=== PATIENT | female | born 1990 | race Caucasian/White ===

== ENCOUNTER 2023-08-30 20:30 | Emergency (ER) | payer OTHER, SELFPAY ==
--- NOTE | ~2023-08-30 | XR_ITS ---
EXAMINATION: XR HAND, RIGHT CLINICAL INFORMATION: Punched a wall. COMPARISON: None available. TECHNIQUE: PA, lateral, and oblique views of the right hand. FINDINGS: Equivocal nondisplaced fracture at the head of the fifth metacarpal. Anatomic alignment. No significant soft tissue abnormality. No unexpected radiopaque foreign bodies. XR/XR hand RT min 3V IMPRESSION: Equivocal nondisplaced fracture at the head of the fifth metacarpal. Correlate for point tenderness.
[2023-08-30 20:39] VITALS: BP 131/83; PULSE 104; RESP 18; TEMP 36.7; O2SAT 96; BMI 26.6
--- NOTE | 2023-08-30 20:39 | ED.PSYCH ---
HPI - Psych General Chief Complaint: ETOH/Substance Use Stated Complaint: crisis, detox, multp. issue Time Seen by Provider: 08/30/23 21:43 Source: patient Mode of arrival: ambulatory Limitations: no limitations History of Present Illness HPI Narrative: 33 yo female with PMH of alcohol use disorder and anxiety here with increased ETOH, daily panic attacks, SI thoughts no plan and chest pain with panic attacks happening daily for 2 weeks. She has sig complaints. She denies hx of withdrawal seizures. Drinks 1 - 2 pints of liquor a day. MD complaint: suicidal ideation, feels depressed and anxiety Onset (ago): month(s) History of same: Yes Relieving factors: none Exacerbating factors: alcohol Context: recent alcohol abuse Associated psychiatric symptoms: depression and suicidal ideation Associated symptoms: nausea and other (anxiety, daily chest pain) Treatments prior to arrival: none If self harm: admits thoughts of self harm Related Data Allergies Allergy/AdvReac Type Severity Reaction Status Date / Time lactose Allergy Unknown Gastrointestinal Uncoded 08/30/23 20:39 Upset Seasonal Allergy Unknown Itchy Eyes Uncoded 08/30/23 20:39 SEASONAL ALLERGIES Allergy Unknown RUNNY NOSE Uncoded 04/01/20 17:53 Review of Systems Review of Systems: Constitutional : No Fever, No Chills ENT/Mouth : No Ear Pain, No Nasal Congestion, No sore throat Eyes: No Eye Pain, No Swelling, No Redness Cardiovascular : pos Chest Pain, No SOB Respiratory : No Cough, No Sputum, No Dyspnea Gastrointestinal : No Nausea, No Vomiting, No Diarrhea, No Hematochezia, No Melena Genitourinary : No Dysuria, No Urinary Frequency, No Hematuria Musculoskeletal : No Myalgias Skin : No Skin Lesions, No rash Neuro : No Weakness, No Numbness, No Paresthesias, No Dizziness, No Headache Psych : positive Anxiety, positive Depression, positive SI no HI Heme/Lymph: No Lymphadenopathy Endocrine : No Polyuria, No Polydipsia All other systems reviewed and are negative [facility] Past Medical History Attestation statement: The following information was validated with the patient. Source: old records reviewed Medical History Anxiety Alcohol use disorder Social History Social History (Updated 08/30/23 @ 22:27 by Sherri Gordon DO) Alcohol intake: current Patient Tobacco Use Status: Never used Tobacco Substance Use Type: Marijuana Advance Directives: No Advance Directives Information Provided: No Physical Exam Vital Signs: Vital Signs: Last Vital Signs Temp 98.3 F 08/31/23 00:59 Pulse 94 08/31/23 00:59 Resp 17 08/31/23 00:59 BP 105/70 08/31/23 00:59 Pulse Ox 97 08/31/23 00:59 O2 Del Method Room Air 08/31/23 00:59 BMI result Body Mass Index 26.6 Appearance: Alert. Oriented X3. No acute distress. Eyes: Pupils equal, round and reactive to light. ENT: Pharynx normal. Neck: Normal inspection. Neck supple. CVS: Normal heart rate and rhythm. Pulses normal. Respiratory: No respiratory distress. Breath sounds normal. Abdomen: Soft and nontender. Skin: Skin warm and dry. Normal skin color. Normal skin turgor. Extremities: No lower extremity edema. No calf ttp R hand contusion noted R 3/4 MCP joints on dorsum of hand distal NV intact Neuro: Oriented X 3. No motor deficit. No sensory deficit. CN2-12 intact Course Course Course Narrative: This is a rapid medical exam: Additional HPI, ROS, PE not included below will be deferred to primary provider. Patient is a 33-year-old female with history of PTSD, depression, and anxiety presenting to the emergency department requesting help with detox from alcohol. Reports daily drinking for the past 2 years. Complains of diarrhea with bright red blood in stool, decreased appetite. Seen at [facility] recently and diagnosed with fatty liver. Also complains of chest pain and tightness. Complains of anxiety and depression, states she doesn't feel like waking up in the morning. Denies history of withdrawal seizures. Last drink 9am this morning. States only drug use is marijuana. Denies suicidal or homicidal ideation, auditory or visual hallucinations. Calm and cooperative in triage. Plan: EKG, labs, UA, CARE eval once medically cleared Reevaluation(s) Reevaluation #1: Physician observation started at 1030pm. Patient placed in physician observation because the patient needed more time for CARE team to assess the need for psych admission. At the time observation was started the patient's vitals were stable, patient is alert and oriented but anxious PRN ativan ordered. Neuro: nonfocal, CV RRR, Lungs clear Medications Administered Generic Name Dose Route Start Last Admin Trade Name Freq PRN Reason Stop Dose Admin Lorazepam 2 mg 08/30/23 22:07 08/30/23 23:58 Lorazepam 1 Mg Tablet PO 2 mg Q2H PRN Administration Alcohol Withdrawal Medical Decision Making Medical Decision Making [facility] Narrative: 33 yo female with ETOH abuse and multiple complaints including SI - at this time EKG, troponin basic labs - PO ativan, CARE team consult, R hand xray. No hx of withdrawal seizures Differential Diagnosis Differential Diagnoses: The differential diagnosis associated with the presentation includes ETOH abuse, anxiety, R hand fracture, gastritis, atypical chest pain Admission/Observation Consideration of admission/observation: Escalation of care including admission/observation considered Consult Healthcare Provider Management of the patient was discussed with: Behavioral Health Provider Lab Data [facility] Lab Attestation statement: I reviewed the patient's lab results. LFTs as expected EKG and TROP flat no OCPs or risk factors for VTE 08/30/23 21:37 08/30/23 21:37 Labs: Lab Results 08/30/23 Range/Units 21:37 WBC 5.5 (4.8-10.8) X10*3/uL RBC 4.35 (4.20-5.50) X10*6/uL Hgb 13.0 (12.0-16.0) g/dl Hct 39.4 (37.0-47.0) % MCV 90.6 (80.0-98.0) fL MCH 29.9 (27.0-33.0) pg MCHC 33.0 (31.0-35.0) g/dl RDW 14.0 (11.0-16.0) % Plt Count 325 (160-400) X10*3/uL MPV 8.9 L (9.4-12.3) fL Immature Gran % (Auto) 0.2 (0.0-0.4) % Neut % (Auto) 71.8 (45-73) % Lymph % (Auto) 20.2 (20-40) % [place] % (Auto) 6.7 (2-11) % Eos % (Auto) 0.2 (0-4) % Baso % (Auto) 0.9 (0-2) % Lymph # (Auto) 1.1 L (1.2-4.9) X10*3/uL [place] # (Auto) 0.4 (0.1-1.2) X10*3/uL Eos # (Auto) 0.0 (0.0-0.4) X10*3/uL Baso # (Auto) 0.1 (0.0-0.2) X10*3/uL Abs Immat Gran (auto) 0.01 (0.00-0.03) X10*3/uL Absolute Neuts (auto) 4.0 (2.0-8.3) x10*3/uL Absolute Nucleated RBC 0.000 (0.0-0.012) X10*3/uL Nucleated RBC % (auto) 0.0 (0.0-0.2) /100WBC Sodium 136 (135-145) mmol/L Potassium 4.9 (3.3-5.1) mmol/L Chloride 101 (96-108) mmol/L Carbon Dioxide 21 L (22-29) mmol/L Anion Gap 19 (12-20) BUN 7 L (9-16) mg/dL Creatinine 0.66 (0.5-1.4) mg/dL Estim Creat Clear Calc 134.1 Estimated GFR > 60 Random Glucose 70 (60-115) mg/dL Calcium 9.0 (8.4-10.2) mg/dL Total Bilirubin 1.6 H (0.0-1.0) mg/dL AST 121 H (5-31) U/L ALT 89 H (0-31) U/L Alkaline Phosphatase 76 (39-117) U/L Troponin I High Sens < 2.7 (<3.5-17.0) ng/L Total Protein 6.3 L (6.5-8.0) g/dL Albumin 3.7 (3.5-5.0) g/dL Beta HCG, Quant < 2 mIU/mL Salicylates < 5.0 L (15-30) mg/dL Acetaminophen < 3 (<30) mcg/mL Ethyl Alcohol 120 mg/dL COVID-19 ([facility]ANE) Negative (Negative) COVID-19 Clin Com See Note Independent Interpretation I performed an independent interpretation of an: EKG Interpretation: Rate: 84 Rhythm: NSR Fontana: normal Normal P waves. Normal KIN. Normal QRS complex. ST T wave : no GOLDIE, inverted t wave III and V1 qTC: 477 prior studies: no acute ischemia The study has been interpreted contemporaneously by me. . Procedures Orthopedic Splinting/Casting Injury #1: Side: right Upper Extremity Injury Location: hand Upper Extremity Immobilizer: ulnar gutter Discharge Plan Discharge Clinical Impression: Alcohol abuse Closed fracture of 5th metacarpal Qualifiers: Encounter type: initial encounter Metacarpal location: unspecified portion of metacarpal Fracture alignment: nondisplaced Laterality: right Qualified Code(s): S62.306A - Unspecified fracture of fifth metacarpal bone, right hand, initial encounter for closed fracture Patient Disposition: Still a Patient
--- NOTE | 2023-08-30 20:43 | ECG_ITS ---
Test Reason : etoh Blood Pressure : / mmHG Vent. Rate : 084 BPM Atrial Rate : 084 BPM P-R Int : 150 ms QRS Dur : 076 ms QT Int : 404 ms P-R-T Axes : 069 009 017 degrees QTc Int : 477 ms Normal sinus rhythm Low voltage QRS Incomplete RBBB Abnormal ECG No previous ECGs available Referred By: Melodie Bardales Electronically Signed By:Galen Varma
[2023-08-30 21:42] LABS: MANUAL DIFF FLAG NO
[2023-08-30 21:45] LABS: Basophils Absolute Auto 0.1 X10*3/uL (0.0-0.2); Basophils Percent Auto 0.9 % (0-2); Eosinophils Percent Auto 0.2 % (0-4); Hematocrit 39.4 % (37.0-47.0); Imm Gran Abs Auto 0.01 X10*3/uL (0.00-0.03); Imm Gran Pct Auto 0.2 % (0.0-0.4); Lymphocytes Absolute Auto 1.1 X10*3/uL (1.2-4.9); Lymphocytes Percent Auto 20.2 % (20-40); Mean Corpuscular Hemoglobin 29.9 pg (27.0-33.0); Mean Corpuscular Volume 90.6 fL (80.0-98.0); Mean Platelet Volume 8.9 fL (9.4-12.3); Monocytes Absolute Auto 0.4 X10*3/uL (0.1-1.2); Monocytes Percent Auto 6.7 % (2-11); Neutrophils Percent Auto 71.8 % (45-73); Platelet Count 325 X10*3/uL (160-400); Red Blood Count 4.35 X10*6/uL (4.20-5.50); White Blood Count 5.5 X10*3/uL (4.8-10.8)
[2023-08-30 21:56] LABS: COVID-19 Test Negative (Negative); IDNOW Serial# 152EDE1D
--- NOTE | 2023-08-30 21:56 | MHC.EDTECH ---
Patient blood drawn and covid swab collected and sent to lab ,ekg taken and was read by Provider .
[2023-08-30 21:57] LABS: Acetaminophen LAB < 3 mcg/mL (<30); Salicylate < 5.0 mg/dL (15-30)
[2023-08-30 22:02] LABS: Alanine Aminotransferase 89 U/L (0-31); Albumin Level 3.7 g/dL (3.5-5.0); Alkaline Phosphatase 76 U/L (39-117); Anion Gap 19 (12-20); Aspartate Amino Transferase 121 U/L (5-31); Bilirubin Total 1.6 mg/dL (0.0-1.0); Blood Urea Nitrogen 7 mg/dL (9-16); Carbon Dioxide 21 mmol/L (22-29); Chloride 101 mmol/L (96-108); Creatinine Clr Calc Pharmacy 134.1; Estimated Glomerular Filt Rate > 60; Ethanol 120 mg/dL; Glucose Random 70 mg/dL (60-115); Potassium 4.9 mmol/L (3.3-5.1); Sodium 136 mmol/L (135-145); Total Protein 6.3 g/dL (6.5-8.0)
[2023-08-30 22:04] LABS: HCG Quantitative < 2 mIU/mL; Troponin-I High Sensitivity < 2.7 ng/L (<3.5-17.0)
--- NOTE | 2023-08-30 22:07 | MHC.EDTECH ---
Patient changed over to clothing and belongings put in locker #10
[2023-08-30 22:09] VITALS: BP 109/72; PULSE 81; RESP 17; TEMP 36.8; O2SAT 95
[2023-08-30 23:06] VITALS: BP 129/78; PULSE 83; RESP 18; TEMP 36.8; O2SAT 98
[2023-08-30] MEDS: LORazepam 1 MG TABLET 2 MG PO (23:58)
[2023-08-31 00:59] VITALS: BP 105/70; PULSE 94; RESP 17; TEMP 36.8; O2SAT 97
[2023-08-31 05:27] LABS: Appearance Urine Clear; Glucose Urine UA Negative (Negative); Leukocyte Esterase Urine Negative (Negative); Nitrite Urine Negative (Negative); PH 5.5 (5.0-9.0); Specific Gravity - Urine 1.025 (1.005-1.025); Urine Blood Negative (Negative); Urine Ketones 80 mg/dL (Negative); Urine Protein Negative (Neg-Trace)
[2023-08-31 05:28] LABS: Color Urine Dark Yellow; UACC Culture Trigger NO
[2023-08-31 05:40] LABS: Amphetamine Screen Urine Not Detected (Not Detect); Barbiturates, Urine Not Detected (Not Detect); Benzodiazepines Screen Urine Not Detected (Not Detect); Cannabinoid Screen Urine POSITIVE (Not Detect); Cocaine Screen Urine Not Detected (Not Detect); Fentanyl, urine Not Detected (Not Detect); Opiate Screen Urine Not Detected (Not Detect); Phencyclidine Screen Urine Not Detected (Not Detect)
[2023-08-31 07:28] VITALS: BP 115/64; PULSE 75; RESP 16; TEMP 37; O2SAT 96
--- NOTE | 2023-08-31 08:58 | MHC.CARE ---
Patient seen by CARE team for consult. This is a 33 year old partnered white female, domiciled with her boyfriend, their five children (ages 18, 14, 11, 7 and 6). Additionally, patient's sister and brother are in the home. She reports her mood as apathetic, depressed. She has a blunted affect, slightly disheveled. Patient wears glasses, appears slender, eye contact and speech wnl. She denies active SI, no plan/ no intent and reports feelings of hopelessness, worthlessness, helplessness. She denies a hx of suicide attempts, reports cutting behavior when she was an adolescent. She has no inpatient psychiatric history, does see a telehealth therapist through [facility] weekly. She does not take any psychiatric medication. She denies aggressive and homicidal thoughts, denies hallucinations and does not appear to be responding to internal stimuli. She denies any history of detox admissions. Denies legal. Reports her drinking is affecting her sleep, appetite and energy/ motivation as well as interpersonal relationships. Her arm is wrapped due to punching a wall out of anger. She reports she began drinking at age 26, with increase in the frequency/ quantity of her etoh use beginning 2.5 years ago. When asked about her experience with withdrawal sx, she shares that she has not really gone more than 24 hours without alcohol in the past 2.5 years and so has not experienced these. Her use is 1.5 pints liquor daily. She is seeking support accessing a detox program.
--- NOTE | 2023-08-31 09:33 | MHC.RECOVRN ---
Addendum entered by Kiana Redd 08/31/23 10:48: [facility] does not have bed availability. Pt provided with contact information to follow up from home. Original Note: Met with pt in [id number] after consult placed to recovery team for ATS. Pt had presented to the ED reporting alcohol use, vague SI, and asking for help. Pt medically cleared as well as cleared by CARE Team. Pt laying in bed, eyes closed, easily wakes to voice. Pt reports alcohol use, 1.5 pints 100 proof vodka daily x 2.5 years. Pt currently appears comfortable, however, reports upset stomach and shaky. Pt received Ativan PO last night. Pt reports maternal grandmother has AUD, denies other family hx. Pt reports desire for abstinence. Pt has never engaged in treatment for AUD, has wanted to stop but states It has been too hard. Pt is currently interested in ATS, however, is only open to local ([facility]) facility, is not agreeable to [facility]. Pt denies questions or concerns at this time. Referral will be sent to [facility].
[2023-08-31] MEDS: Naloxone HCl Nasal TAKE HOME 4 MG SPRAY 8 MG NOSTRILALT (11:14)
== END 2023-08-31 11:21 | disposition still patient (30) ==
PROVIDERS: Registered Nurse Emergency; Emergency Provider Emergency Medicine
DX: F10.10 Alcohol abuse, uncomplicated (principal); Y90.6 Blood alcohol level of 120-199 mg/100 ml; F32.A Depression, unspecified; F41.9 Anxiety disorder, unspecified; F43.10 Post-traumatic stress disorder, unspecified; S62.346A Nondisplaced fracture of base of fifth metacarpal bone, right hand, initial encounter for closed fracture; X58.XXXA Exposure to other specified factors, initial encounter; R07.9 Chest pain, unspecified; Y93.9 Activity, unspecified; Y92.9 Unspecified place or not applicable; Y99.9 Unspecified external cause status
CPT/HCPCS: 29125; 73130; 80053; 80143; 80179; 80307; 81003; 84484; 84702; 85025; 87635; 93005; 99285

== ENCOUNTER → 2023-08-30 20:43 | Outpatient (BNV) | payer OTHER, SELFPAY | PROVIDERS: Emergency Provider Emergency Medicine; Visit Provider Internal Medicine Cardiovascular Disease | DX: R94.31 Abnormal electrocardiogram [ECG] [EKG] (principal) | CPT/HCPCS: 93010 ==

== ENCOUNTER 2023-09-02 15:56 | Emergency (ER) | payer OTHER, SELFPAY ==
--- NOTE | 2023-09-02 16:12 | ED_ITS ---
HPI - General Adult General Chief complaint: ETOH/Substance Use Stated complaint: same as sunday, feels like shes going to pass Time Seen by Provider: 09/02/23 17:13 Source: patient Mode of arrival: ambulatory History of Present Illness HPI narrative: 33-year-old female with known alcohol use disorder presents with request for detox and states that her last drink was 0600 on Sunday, she endorses some tremulousness as well as experiencing nausea and vomiting but then states that she has started being able to tolerate water without vomiting after receiving Zofran in the waiting room. She does not have a significant history of seizure from withdrawal. She does have some complaints regarding discomfort of the right 4th and 5th fingers from the splint and that will be evaluated. Related Data Allergies Allergy/AdvReac Type Severity Reaction Status Date / Time lactose Allergy Unknown Gastrointestinal Uncoded 09/02/23 16:17 Upset Seasonal Allergy Unknown Itchy Eyes Uncoded 08/30/23 20:39 SEASONAL ALLERGIES Allergy Unknown RUNNY NOSE Uncoded 04/01/20 17:53 Review of Systems 2 Review of Systems: Pertinent positives and negatives as stated in HPI PMFSH Past Medical History Source: nursing notes reviewed Medical History Anxiety Alcohol use disorder Social History Social History Alcohol intake: current Alcohol intake frequency: 3 or more drinks per day Patient Tobacco Use Status: Never used Tobacco Smoked in Last 30 Days: Yes Use of substances other than those prescribed or required for medical reasons: Yes Substance Use Type: Marijuana Advance Directives: No Advance Directives Information Provided: No Patient : No Physical Exam ED Vital Signs: Vital Signs - 24 hr 09/02/23 16:13 09/02/23 17:25 Temperature 98.3 F 97.8 F Pulse Rate 105 H 100 Respiratory Rate 16 16 Blood Pressure 125/98 H 119/85 Pulse Oximetry 99 96 Oxygen Delivery Method Room Air Room Air BMI result Body Mass Index 22.9 VITAL SIGNS: Reviewed. GENERAL: Well developed, well nourished, in no acute distress. HEAD: Normocephalic/atraumatic EYES: PERRLA, EOMI EARS: Ext canals without abnormality NOSE: Nares patent bilateral OROPHARYNX: no oral lesions noted, posterior pharynx clear NECK: Supple, no adenopathy LUNGS: Normal breath sounds. No adventitious sounds or accessory muscle use. SpO2<96> CARDIOVASCULAR: Regular rate and rhythm without noted murmurs ABDOMEN: Soft, non-tender, non-distended with bowel sounds. MUSCULOSKELETAL: No tenderness, deformities, or effusions noted on gross inspection. EXTREMITIES: No cyanosis, clubbing or edema. SKIN: Inspection of the skin reveals no rashes NEUROLOGIC: Alert and oriented x 4. Strength and sensation to light touch were grossly intact x 4, cranial nerves 2-12 are grossly intact. Course Course Course Narrative: RME: 33 yo female?here with abd pain, N/V, tremors x4 days. Believe she is in etoh withdrawal. Last consumed etoh yesterday morning around 0600 (two shots of liquor). symptoms do not resolve with warm showers. Taking a few shots every day to control the withdrawals[place] [id number] today. Endorses vivid dreams. Denies hallucinations. states she has never been in withdrawal. denies withdrawal seizures or delirium tremens. Admits to daily marijuana use. denies other illicit substance use. >>seen here 2 days ago for same. tachy. tremulous. No asterixis or tongue fasciculations. labs, UA, tox, and addiction med consult ordered. zofran given. Full HPI, ROS and PE to be performed by the primary ED provider. Medications Administered Discontinued Medications Generic Name Dose Route Start Last Admin Trade Name Freq PRN Reason Stop Dose Admin Chlordiazepoxide HCl 10 mg 09/02/23 17:38 09/02/23 18:01 Chlordiazepoxide Hcl 5 Mg Capsule PO 09/02/23 17:39 10 mg ONCE ONE Administration Magnesium Oxide 800 mg 09/02/23 17:04 09/02/23 17:27 Magnesium Oxide 400 Mg Tablet PO 09/02/23 17:05 800 mg ONCE ONE Administration Ondansetron HCl 4 mg 09/02/23 16:15 09/02/23 16:19 Ondansetron Odt 4 Mg Tab.Rapdis TRANSLINGU 09/02/23 16:16 4 mg ONCE ONE Administration Medical Decision Making Medical Decision Making MDM Narrative: 33-year-old female with history and clinical presentation, DDX: Alcohol use disorder, seeking detox without endorsing SI/HI, alcoholic gastritis/pancreatitis and patient is currently tolerating oral intake. I reviewed all investigations and hematologic indices are negative for leukocytosis/anemia/thrombocytopenia. Chemistry indices do not demonstrate an WILLIAM and there is no derangement noted of the potassium but magnesium is noted to be 1.2 and patient will receive 800 mg of magnesium oxide 4 repletion, otherwise LFTs are chronically elevated and consistent with chronic alcohol use, lipase values are within normal limits and there is no corresponding epigastric pain consistent with pancreatitis, after receiving Zofran in the waiting room patient is able to tolerate water and is agreeable to try saltine crackers at this time. Urinalysis is significant for UTI and patient received 1st dose of Macrobid here in the emergency room. Patient was provided with a list of acute care centers for alcohol detox and she understands that she will need to start making phone calls in the meantime I have given her a small dose of Librium. Ulnar gutter splint was removed, marginally widened and replaced with good resolution of pain. 1848: On re-evaluation, patient is feeling better and tolerating oral intake and states that she was able to get into contact with 1 of the facilities and will present 1st thing in the morning for detox. Differential Diagnosis Differential Diagnoses: The differential diagnosis associated with the presentation includes Please see the discussion above Admission/Observation Consideration of admission/observation: Escalation of care including admission/observation considered Please see the discussion above Lab Data MDM Lab Attestation statement: I reviewed the patient's lab results. Please see the discussion above 09/02/23 16:27 09/02/23 16:27 Labs: Lab Results 09/02/23 09/02/23 09/02/23 Range/Units 16:27 17:08 18:02 WBC 8.7 (4.8-10.8) X10*3/uL RBC 4.75 (4.20-5.50) X10*6/uL Hgb 14.2 (12.0-16.0) g/dl Hct 42.3 (37.0-47.0) % MCV 89.1 (80.0-98.0) fL MCH 29.9 (27.0-33.0) pg MCHC 33.6 (31.0-35.0) g/dl RDW 14.2 (11.0-16.0) % Plt Count 299 (160-400) X10*3/uL MPV 9.5 (9.4-12.3) fL Immature Gran % (Auto) 0.3 (0.0-0.4) % Neut % (Auto) 78.4 H (45-73) % Lymph % (Auto) 12.6 L (20-40) % Bureau % (Auto) 7.1 (2-11) % Eos % (Auto) 0.9 (0-4) % Baso % (Auto) 0.7 (0-2) % Lymph # (Auto) 1.1 L (1.2-4.9) X10*3/uL [place] # (Auto) 0.6 (0.1-1.2) X10*3/uL Eos # (Auto) 0.1 (0.0-0.4) X10*3/uL Baso # (Auto) 0.1 (0.0-0.2) X10*3/uL Abs Immat Gran (auto) 0.03 (0.00-0.03) X10*3/uL Absolute Neuts (auto) 6.8 (2.0-8.3) x10*3/uL Absolute Nucleated RBC 0.000 (0.0-0.012) X10*3/uL Nucleated RBC % (auto) 0.0 (0.0-0.2) /100WBC Sodium 138 (135-145) mmol/L Potassium 3.8 D (3.3-5.1) mmol/L Chloride 100 (96-108) mmol/L Carbon Dioxide 25 (22-29) mmol/L Anion Gap 17 (12-20) BUN 5 L (9-16) mg/dL Creatinine 0.78 (0.5-1.4) mg/dL Estim Creat Clear Calc 103.4 Estimated GFR > 60 Random Glucose 109 (60-115) mg/dL Calcium 9.9 D (8.4-10.2) mg/dL Magnesium 1.2 L* (1.6-2.6) mg/dL Total Bilirubin 1.4 H (0.0-1.0) mg/dL AST 284 H (5-31) U/L ALT 131 H (0-31) U/L Alkaline Phosphatase 74 (39-117) U/L Total Protein 7.0 (6.5-8.0) g/dL Albumin 4.0 (3.5-5.0) g/dL Lipase 28 (8-78) U/L Urine Color [place] A Urine Appearance Cloudy Urine pH 7.0 (5.0-9.0) Ur Specific [place] >= 1.030 H (1.005-1.025) Urine Protein 100 (2+) H (Neg-Trace) mg/dL Urine Glucose (UA) Negative (Negative) mg/dL Urine Ketones 80 (Negative) mg/dL Urine Blood Negative (Negative) Urine Nitrite Positive H (Negative) Ur Leukocyte Esterase Small (1+) H (Negative) Urine RBC 6-10 H (0-2) /HPF Urine WBC 0-5 (0-5) /HPF Ur Squamous Epith Cells 11-20 (0-2) /HPF Urine Bacteria 2+ (None Seen) Hyaline Casts 3-5 (0-2) /LPF Urine Test NEGATIVE (NEGATIVE) Urine Opiates Screen Not Detected (Not Detect) Urine Fentanyl Screen Not Detected (Not Detect) Ur Barbiturates Screen Not Detected (Not Detect) Ur Phencyclidine Scrn Not Detected (Not Detect) Ur Amphetamines Screen Not Detected (Not Detect) U Benzodiazepines Scrn Not Detected (Not Detect) Urine Cocaine Screen Not Detected (Not Detect) U Marijuana (THC) Screen POSITIVE H (Not Detect) Ethyl Alcohol < 10 mg/dL Influenza Type A (PCR) NEGATIVE (Negative) Influenza Type B (PCR) NEGATIVE (Negative) RSV RNA Qual (PCR) NEGATIVE (Negative) SARS-CoV-2 RNA (RT-PCR) NEGATIVE (Negative) Independent Interpretation I performed an independent interpretation of an: EKG Interpretation: Normal sinus rhythm, HR-89, no STEMI, ME/QRS/QTC is within normal limits, there are nonspecific T-wave abnormalities noted. External Record Review External record reviewed: Outpatient record, Prior outpatient labs and Prior outpatient radiology Social Determinants Patient?s care significantly limited by Social Determinants of Health including: Alcoholism and drug addiction in family Critical Care Time Critical Care Time Critical Care Time: Yes Total Critical Care Time: 45 Attestation: I personally attest to this time spent taking care of the patient. Discharge Plan Discharge Clinical Impression: Alcohol use disorder, Hypomagnesemia, Urinary tract infection Patient Disposition: Home, Self-Care Instructions: Hypomagnesemia (ED), Alcohol Use Disorder (ED), Urinary Tract Infection in Women (ED) Additional Instructions: 1. Recommend half dose of Benadryl for nausea control at home. 2. Please complete the course of antibiotics as prescribed for your urinary tract infection. 3. Please follow through with alcohol detox. Return to the ER for any worsening symptoms.
[2023-09-02 16:13] VITALS: BP 125/98; PULSE 105; RESP 16; TEMP 36.8; O2SAT 99; BMI 22.9
[2023-09-02] MEDS: Ondansetron ODT 4 MG TAB.RAPDIS TRANSLINGU (16:19)
--- NOTE | 2023-09-02 16:19 | ECG_ITS ---
Test Reason : ETOH WITHDRAWL Blood Pressure : / mmHG Vent. Rate : 089 BPM Atrial Rate : 089 BPM P-R Int : 144 ms QRS Dur : 080 ms QT Int : 378 ms P-R-T Axes : 070 015 -09 degrees QTc Int : 459 ms Normal sinus rhythm Possible Left atrial enlargement T wave abnormality, consider inferior ischemia T wave abnormality, consider anterior ischemia Abnormal ECG When compared with ECG of 30-AUG-2023 21:46, T wave inversion now evident in Anterior leads Referred By: Sheron Castañeda Electronically Signed By:KENNETH RICH MD
[2023-09-02 16:31] LABS: MANUAL DIFF FLAG NO
[2023-09-02 16:33] LABS: Basophils Absolute Auto 0.1 X10*3/uL (0.0-0.2); Basophils Percent Auto 0.7 % (0-2); Eosinophils Absolute Auto 0.1 X10*3/uL (0.0-0.4); Eosinophils Percent Auto 0.9 % (0-4); Hematocrit 42.3 % (37.0-47.0); Hemoglobin 14.2 g/dl (12.0-16.0); Imm Gran Abs Auto 0.03 X10*3/uL (0.00-0.03); Imm Gran Pct Auto 0.3 % (0.0-0.4); Lymphocytes Absolute Auto 1.1 X10*3/uL (1.2-4.9); Lymphocytes Percent Auto 12.6 % (20-40); Mean Corpuscular HGB Conc 33.6 g/dl (31.0-35.0); Mean Corpuscular Hemoglobin 29.9 pg (27.0-33.0); Mean Corpuscular Volume 89.1 fL (80.0-98.0); Mean Platelet Volume 9.5 fL (9.4-12.3); Monocytes Absolute Auto 0.6 X10*3/uL (0.1-1.2); Monocytes Percent Auto 7.1 % (2-11); Neutrophils Absolute Auto 6.8 x10*3/uL (2.0-8.3); Neutrophils Percent Auto 78.4 % (45-73); Platelet Count 299 X10*3/uL (160-400); Red Blood Count 4.75 X10*6/uL (4.20-5.50); Red Cell Distribution Width 14.2 % (11.0-16.0); White Blood Count 8.7 X10*3/uL (4.8-10.8)
[2023-09-02 16:55] LABS: Ethanol < 10 mg/dL
[2023-09-02 16:58] LABS: Alanine Aminotransferase 131 U/L (0-31); Alkaline Phosphatase 74 U/L (39-117); Anion Gap 17 (12-20); Aspartate Amino Transferase 284 U/L (5-31); Bilirubin Total 1.4 mg/dL (0.0-1.0); Blood Urea Nitrogen 5 mg/dL (9-16); Calcium 9.9 mg/dL (8.4-10.2); Carbon Dioxide 25 mmol/L (22-29); Chloride 100 mmol/L (96-108); Creatinine Clr Calc Pharmacy 103.4; Estimated Glomerular Filt Rate > 60; Glucose Random 109 mg/dL (60-115); Lipase 28 U/L (8-78); Magnesium 1.2 mg/dL (1.6-2.6); Potassium 3.8 mmol/L (3.3-5.1); Sodium 138 mmol/L (135-145)
[2023-09-02 17:25] VITALS: BP 119/85; PULSE 100; RESP 16; TEMP 36.6; O2SAT 96
[2023-09-02] MEDS: Magnesium Oxide 400 MG TABLET 800 MG PO (17:27)
--- NOTE | 2023-09-02 17:32 | PC.NURSE ---
a&ox4. vss and up to date at this time aside from being tachycardic. pt presenting t the ED d/t abd bran/n/v x 2-3 weeks. increase in sx x past week. pt seen at [facility] originally for same sx but insurance did not cover pt's zofran. medication administered per provider order. updated CIWA at this time = 10. no sob/wob noted. respirations even and unlabored. call rosario placed within reach.
[2023-09-02] MEDS: chlordiazePOXIDE HCl 5 MG CAPSULE 10 MG PO (18:01)
[2023-09-02 18:04] LABS: Influenza A PCR NEGATIVE (Negative); Influenza B PCR NEGATIVE (Negative); Resp Syncy Virus RNA Qual PCR NEGATIVE (Negative); SARS COV2 PCR INHOUSE NEGATIVE (Negative)
--- NOTE | 2023-09-02 18:05 | PC.NURSE ---
medication administered per provider order. urine obtained/sent to lab.
[2023-09-02 18:15] LABS: UPreg QC Valid YES; Urine Pregnancy NEGATIVE (NEGATIVE)
[2023-09-02 18:29] LABS: Appearance Urine Cloudy; Color Urine Orange; Glucose Urine UA Negative (Negative); Leukocyte Esterase Urine Small (1+) (Negative); Nitrite Urine Positive (Negative); Specific Gravity - Urine >= 1.030 (1.005-1.025); UMIC TRIGGER UACC YES; Urine Blood Negative (Negative); Urine Ketones 80 mg/dL (Negative); Urine Protein 100 (2+) mg/dL (Neg-Trace)
[2023-09-02 18:30] LABS: Bacteria Urine 2+ (None Seen); UACC Culture Trigger YES; WBC Urine 0-5 /HPF (0-5)
[2023-09-02 18:35] LABS: Amphetamine Screen Urine Not Detected (Not Detect); Barbiturates, Urine Not Detected (Not Detect); Benzodiazepines Screen Urine Not Detected (Not Detect); Cannabinoid Screen Urine POSITIVE (Not Detect); Cocaine Screen Urine Not Detected (Not Detect); Fentanyl, urine Not Detected (Not Detect); Opiate Screen Urine Not Detected (Not Detect); Phencyclidine Screen Urine Not Detected (Not Detect)
[2023-09-02 18:59] VITALS: BP 104/75; PULSE 86; RESP 20; TEMP 36.8; O2SAT 98
[2023-09-02] MEDS: Nitrofurantoin Monohyd/M-Cryst 100 MG CAPSULE PO (19:11)
[2023-09-02 19:22] VITALS: BP 126/63; PULSE 97; RESP 16; TEMP 36.8; O2SAT 98
== END 2023-09-02 19:24 | disposition home or self-care (01) ==
PROVIDERS: Physician Assistant Medical; Emergency Provider Student in an Organized Health Care Education/Training Program
DX: F10.239 Alcohol dependence with withdrawal, unspecified (principal); E83.42 Hypomagnesemia; N39.0 Urinary tract infection, site not specified; R94.31 Abnormal electrocardiogram [ECG] [EKG]; Y90.0 Blood alcohol level of less than 20 mg/100 ml; Z20.822 Contact with and (suspected) exposure to COVID-19; Z20.828 Contact with and (suspected) exposure to other viral communicable diseases; Z79.899 Other long term (current) drug therapy
CPT/HCPCS: 0241U; 36415; 80053; 80307; 81001; 81025; 83690; 83735; 85025; 87086; 93005; 99284; 99285

== ENCOUNTER → 2023-09-02 16:19 | Outpatient (BNV) | payer OTHER, SELFPAY | PROVIDERS: Emergency Provider Student in an Organized Health Care Education/Training Program; Visit Provider Internal Medicine Cardiovascular Disease | DX: R94.31 Abnormal electrocardiogram [ECG] [EKG] (principal) | CPT/HCPCS: 93010 ==

== ENCOUNTER 2023-09-10 13:05 | Outpatient (AMB) | payer OTHER, SELFPAY ==
--- NOTE | 2023-09-10 13:24 | MHC.OFFVIS ---
Intake Vital Signs 09/10/23 13:37 Height 5 ft 8 in Weight 150 lb BMI 22.8 Intake Visit Reasons: fc- Closed fracture of right 5th metacarpal Intake Note: Torey chavez 33 year old right hand dominant female presents today for an ER follow up of right 5th MC fracture, DOI 09/02/23. Patient reports that she punched a wall, she presented to [facility] ED same day where xrays were taken and placed in a splint. Currently she has discomfort with splint being removed, states feeling coldness in her fingers. She has been feeling and hear a popping. Numbness and tingling in her fingers that goes up to her elbow for the past 3-4 days. Allergies lactose Allergy (Unknown, Uncoded 09/10/23 13:39) Gastrointestinal Upset Seasonal Allergy (Unknown, Uncoded 09/10/23 13:39) Itchy Eyes SEASONAL ALLERGIES Allergy (Unknown, Uncoded 09/10/23 13:39) RUNNY NOSE HPI fc- Closed fracture of right 5th metacarpal HPI Details 33-year-old right hand dominant female who presents to the office today for evaluation of right 5th metacarpal injury s/p punching a wall, 09/02/23. She was seen at ED the same day where x-rays were performed and she was placed in a splint. She currently states she has discomfort with splint being removed and experiences coldness in her fingers. She also reports she feels ?popping? in her finger. She also c/o numbness and tingling in her fingers which radiates up to her elbow for the past 3-4 days. [facility] Medical History Anxiety Alcohol use disorder Social History (Updated 09/10/23 @ 13:36 by KEHINDE Winters) Alcohol intake: current Alcohol intake frequency: 3 or more drinks per day Patient Tobacco Use Status: Never used Tobacco Substance Use Type: Marijuana Current occupational status: employed Current occupation: [employer], right hand dominant Review of Systems Const All systems reviewed & are unremarkable except as noted in HPI and below Physical Exam Vital Signs: BMI result Body Mass Index 22.8 Extrem Other: Right hand: Normal to inspection. There is some tenderness over the neck of the 5th metacarpal. There is no scissoring or angulation of the small finger. She can fully extend and bring his hand to a closed fist. Office Procedures Casting/Splints 39536-Hrzs/Wrist Cast Application Procedure code (CPT) selection complete Fracture Care Fracture Billing Code: Fracture Billing Code Results Reviewed Results Reviewed: Xrays were obtained in the office today and personally reviewed by me of the right hand show a subtle lucency along the 3,45 proximal phalanx. Assessment & Plan Assessment & Plan (1) Right hand fracture: Code(s): S62.91XA - Unspecified fracture of right wrist and hand, initial encounter for closed fracture Qualifiers: Encounter type: initial encounter Fracture type: closed Qualified Code(s): S62.91XA - Unspecified fracture of right wrist and hand, initial encounter for closed fracture Plan She was placed in a short arm ulnar gutter cast which she will wear for immobilization. She will avoid any type of lifting, pushing, pulling or carrying greater than a cellphone. She will keep this on for 3 weeks at which point return for cast off and new x-rays, sooner if needed. Orders: Orders XR hand RT min 3V Today M79.641 - Pain in right hand Patient Instructions: Scribed for Edna Tellez PA-C, by Rigo Mcginnis bio medical technician, on 09/10/2023 at 1:00 PM EST. IEdna PA-C, have personally reviewed and agree with the information entered by the scribe. Coding Level of Care Code New Pt Level 3 (05750) Diagnoses Closed fracture of right hand, initial encounter S62.91XA Encounter type: initial encounter Fracture type: closed CPT Codes Casting - CPT: 80576-Akwq/Wrist Cast Application ([id number]) Fracture Care - Fracture Billing Code: Fracture Billing Code ([id number])
[2023-09-10 13:37] VITALS: BMI 22.8
== END 2023-09-10 14:20 | disposition home or self-care (01) ==
PROVIDERS: Visit Provider Physician Assistant
DX: S62.91XA Unspecified fracture of right hand, initial encounter for closed fracture (principal); S62.306A Unspecified fracture of fifth metacarpal bone, right hand, initial encounter for closed fracture
CPT/HCPCS: 26600; 99203

== ENCOUNTER 2023-09-10 14:36 | Outpatient (REF) | payer OTHER, SELFPAY ==
--- NOTE | ~2023-09-10 | XR_ITS ---
EXAMINATION: XR HAND, RIGHT CLINICAL INFORMATION: Pain. COMPARISON: Radiographs dated 08/30/2023. TECHNIQUE: PA, lateral, and oblique views of the right hand. FINDINGS: The bones and soft tissues are normal. No fracture. Alignment is anatomic. Joint spaces are maintained. No erosions or soft tissue calcifications. XR/XR hand RT min 3V IMPRESSION: Normal right hand. The previously questioned right fifth metacarpal head fracture is not presently appreciated.
== END 2023-09-10 14:37 | disposition home or self-care (01) ==
LOC: HO.HOSX 14:36
PROVIDERS: Visit Provider Physician Assistant
DX: S62.91XA Unspecified fracture of right hand, initial encounter for closed fracture (principal); X58.XXXA Exposure to other specified factors, initial encounter; Y93.9 Activity, unspecified; Y92.9 Unspecified place or not applicable; Y99.9 Unspecified external cause status
CPT/HCPCS: 26600; 73130; 99202

== ENCOUNTER 2023-10-04 06:19 | Outpatient (REF) | payer OTHER, SELFPAY ==
--- NOTE | ~2023-10-04 | XR_ITS ---
EXAMINATION: XR HAND, RIGHT CLINICAL INFORMATION: Pain COMPARISON: 09/10/2023, 08/30/2023 TECHNIQUE: PA, lateral, and oblique views of the right hand. FINDINGS: The bones and soft tissues are normal. No fracture. Alignment is anatomic. Joint spaces are maintained. No erosions or soft tissue calcifications. XR/XR hand RT min 3V IMPRESSION: Normal right hand.
== END 2023-10-04 06:20 | disposition home or self-care (01) ==
LOC: HO.HOSX 06:19
PROVIDERS: Visit Provider Physician Assistant
DX: S62.91XD Unspecified fracture of right hand, subsequent encounter for fracture with routine healing (principal); M79.641 Pain in right hand; X58.XXXD Exposure to other specified factors, subsequent encounter
CPT/HCPCS: 73130; 99212

== ENCOUNTER 2023-10-04 09:26 | Outpatient (AMB) | payer OTHER, SELFPAY ==
--- NOTE | 2023-10-04 09:28 | A.OFFVIS_ITS ---
Intake Vital Signs 10/04/23 09:41 Height 5 ft 8 in Weight 150 lb BMI 22.8 Intake Visit Reasons: OV-right hand fx-cast off w xrays Intake Note: Torey chavez 33 year old right hand dominant female presents today for a follow up of right 5th MC fracture, DOI 09/02/23. Cast off and xrays updated. Patient reports she is doing well, states most of her discomfort was with cast wear. States she continues to have constant pain in he small finger. Allergies lactose Allergy (Unknown, Uncoded 10/04/23 09:39) Gastrointestinal Upset Seasonal Allergy (Unknown, Uncoded 10/04/23 09:39) Itchy Eyes SEASONAL ALLERGIES Allergy (Unknown, Uncoded 10/04/23 09:39) RUNNY NOSE HPI OV-right hand fx-cast off w xrays HPI Details 33-year-old female who returns to the [facility] today for a follow-up of right-hand fracture, 09/02/23. She continues to have constant pain in her small finger and is unable to make a fist. She also c/o discomfort with cast wear. She has no other concerns today. [facility] Medical History Anxiety Alcohol use disorder Social History Alcohol intake: current Alcohol intake frequency: 3 or more drinks per day Patient Tobacco Use Status: Never used Tobacco Substance Use Type: Marijuana Current occupational status: employed Current occupation: [employer], right hand dominant Review of Systems Const All systems reviewed & are unremarkable except as noted in HPI and below Physical Exam Vital Signs: BMI result Body Mass Index 22.8 Extrem Other: Right hand: Normal to inspection. No tenderness over the neck of the 5th metacarpal. There is no scissoring or angulation of the small finger. She can fully extend and bring his hand to a closed fist. Results Reviewed Results Reviewed: Xrays were obtained in the office today and personally reviewed by me of the right hand show healed fractures Assessment & Plan Assessment & Plan (1) Right hand fracture: Code(s): S62.91XA - Unspecified fracture of right wrist and hand, initial encounter for closed fracture Qualifiers: Encounter type: initial encounter Fracture type: closed Qualified Code(s): S62.91XA - Unspecified fracture of right wrist and hand, initial encounter for closed fracture Plan She was transitioned to a comfort wrist splint which she will wear with activities. She can come out of the splint for ROM exercises which I did perform in the office today and I was able to bring her to a closed fist. She will also begin a course of occupational therapy and see me back in 2 weeks if she has difficulty with ROM, otherwise follow-up as needed. Orders: Orders XR hand RT min 3V Today M79.641 - Pain in right hand OT Evaluation and Treatment Today S62.91XA - Unspecified fracture of right wrist and hand, initial encounter for closed fracture Patient Instructions: Scribed for Edna Tellez PA-C, by Rigo Mcginnis medical resident, on 10/04/2023 at 9:15 AM EST. Edna Archibald PA-C, have personally reviewed and agree with the information entered by the scribe. Coding Level of Care Code Global (40671) Diagnoses Closed fracture of right hand, initial encounter S62.91XA Encounter type: initial encounter Fracture type: closed
[2023-10-04 09:41] VITALS: BMI 22.8
== END 2023-10-04 10:23 | disposition home or self-care (01) ==
PROVIDERS: Visit Provider Physician Assistant
DX: S62.91XA Unspecified fracture of right hand, initial encounter for closed fracture (principal)
CPT/HCPCS: 99024

== ENCOUNTER 2023-10-18 12:29 | Outpatient (AMB) | payer OTHER, SELFPAY ==
--- NOTE | 2023-10-18 12:34 | A.OFFVIS_ITS ---
Intake Intake Visit Reasons: OV-right hand fx Intake Note: Torey chavez 33 year old right hand dominant female presents today for a follow up of right 5th MC fracture, DOI 09/02/23. Patient reports that she missed her OT appointment today however she continues to do at home exercises by closing her fist. She has a discomfort in her middle finger and feels a clicking. She also has discomfort in the lateral aspect of wrist. Allergies lactose Allergy (Unknown, Uncoded 10/18/23 12:36) Gastrointestinal Upset Seasonal Allergy (Unknown, Uncoded 10/18/23 12:36) Itchy Eyes SEASONAL ALLERGIES Allergy (Unknown, Uncoded 10/18/23 12:36) RUNNY NOSE HPI OV-right hand fx HPI Details 33-year-old right hand dominant female armani castro returns to the office today for a follow-up of right-hand fracture, 09/02/23. She reports she missed her occupational therapy appointment today however she continues to do exercises at home as instructed. She currently states she has discomfort at the middle finger and lateral aspect of her wrist. She also c/o clicking in her middle finger. She has no other concerns. [facility] Medical History Anxiety Alcohol use disorder Social History Alcohol intake: current Alcohol intake frequency: 3 or more drinks per day Patient Tobacco Use Status: Never used Tobacco Substance Use Type: Marijuana Current occupational status: employed Current occupation: [employer], right hand dominant Review of Systems Const All systems reviewed & are unremarkable except as noted in HPI and below Physical Exam Extrem Other: Right hand: Normal to inspection. No tenderness over the neck of the 5th metacarpal. There is no scissoring or angulation of the small finger. She can fully extend and bring his hand to a closed fist. Results Reviewed Results Reviewed: Xrays were obtained in the office today and personally reviewed by me of the right hand show healed fractures Assessment & Plan Assessment & Plan (1) Right hand fracture: Code(s): S62.91XA - Unspecified fracture of right wrist and hand, initial encounter for closed fracture Qualifiers: Encounter type: initial encounter Fracture type: closed Qualified Code(s): S62.91XA - Unspecified fracture of right wrist and hand, initial encounter for closed fracture Plan She will increase activity as tolerated using caution with any type of impact activities for the next 3 weeks. She will reschedule her appointment for occupational therapy. I reassured her that the tendinitis and weakness that she has is with the injury and will heal back with time. She will see me back as needed. Patient Instructions: Scribed for Edna Tellez PA-C, by Rigo Mcginnis medical imaging technologist, on 10/18/2023 at 12:30 PM EST. I, Edna Tellez PA-C, have personally reviewed and agree with the information entered by the scribe. Coding Level of Care Code Global (64322) Diagnoses Closed fracture of right hand, initial encounter S62.91XA Encounter type: initial encounter Fracture type: closed
== END 2023-10-18 13:52 | disposition home or self-care (01) ==
PROVIDERS: Visit Provider Physician Assistant
DX: S62.91XA Unspecified fracture of right hand, initial encounter for closed fracture (principal)
CPT/HCPCS: 99024

== ENCOUNTER → 2023-10-18 12:29 | Outpatient (BNVA) | payer OTHER, SELFPAY | PROVIDERS: Visit Provider Physician Assistant | DX: S62.91XD Unspecified fracture of right hand, subsequent encounter for fracture with routine healing (principal) | CPT/HCPCS: 99212 ==

== ENCOUNTER 2024-05-04 17:12 | Emergency (ER) | payer OTHER, SELFPAY ==
--- NOTE | ~2024-05-04 | XR_ITS ---
EXAMINATION: XR CHEST CLINICAL INFORMATION: Chest pain COMPARISON: 12/09/2014 TECHNIQUE: Frontal view of the chest was obtained. FINDINGS: No significant abnormality is noted involving the heart, lungs, mediastinum, bony thorax or soft tissues. There is mild pectus excavatum. Presumed hair wayne overlie the supraclavicular region. Please correlate with physical exam. XR/XR chest 1V IMPRESSION: No acute intrathoracic disease. Electronically signed by: Luis Carlos Dallas MD 05/04/2024 09:05 PM EDT RP
[2024-05-04 17:15] VITALS: BP 112/79; PULSE 91; RESP 16; TEMP 36.6; O2SAT 99; BMI 22.0
--- NOTE | 2024-05-04 17:17 | ED.GENADULT ---
HPI - General Adult General Chief complaint: ETOH/Substance Use Stated complaint: Alcohol withdrawals Time Seen by Provider: 05/04/24 18:16 Source: patient Mode of arrival: ambulatory Limitations: no limitations History of Present Illness ED Provider: William JACOB HPI narrative: 34 yold female wtih pmh of alcohol abuse presents to the ED for not feeling well and believing she is in alcohol withdrawal. patient states she was clean/sober from alcohol for 30 days and then she went on a drinking binge for the past 4 days. Patient states last drink was 05:00 this morning. Patient feeling off, mild chest pain, weakness described by fatigue hungry. Patient states she has not eaten in in 2-3 days. Patient states he is homeless. Patient not want detox. Patient denies any recent long travel or recent surgery. Patient denies any shortness of breath. Patient denies any history of estrogen hormonal use or control pills. Patient denies any pleurisy. Related Data Previous Rx's ?Medication ?Instructions ?Recorded nitrofurantoin 100 mg PO Q12H 5 days #10 caps 09/02/23 monohydrate/macrocrystals 100 mg capsule (Macrobid) Allergies Allergy/AdvReac Type Severity Reaction Status Date / Time lactose Allergy Unknown Gastrointestinal Uncoded 05/04/24 17:18 Upset Seasonal Allergy Unknown Itchy Eyes Uncoded 05/04/24 17:18 SEASONAL ALLERGIES Allergy Unknown RUNNY NOSE Uncoded 05/04/24 17:18 Review of Systems Review of Systems: fatige, homeless, not eating, chest pain. patient denies SI/HI Yes all other systems are reviewed and are negative PMFSH Past Medical History Medical History Anxiety Alcohol use disorder Social History Social History Alcohol intake: current Alcohol intake frequency: 3 or more drinks per day Alcohol type: hard liquor Patient Tobacco Use Status: Never used Tobacco Smoked in Last 30 Days: No Use of substances other than those prescribed or required for medical reasons: No Substance Use Type: Marijuana Advance Directives: No Advance Directives Information Provided: No Patient : No Current occupational status: employed Current occupation: [employer], right hand dominant Physical Exam ED Vital Signs: Vital Signs - 24 hr 05/04/24 17:15 05/04/24 17:58 05/04/24 21:37 Temperature 97.8 F 98.2 F 98.3 F Pulse Rate 91 89 80 Respiratory Rate 16 21 H 16 Blood Pressure 112/79 124/85 121/72 Pulse Oximetry 99 100 98 Oxygen Delivery Method Room Air Room Air Room Air 05/04/24 22:26 05/04/24 22:35 Temperature 0 F L Pulse Rate 84 84 Respiratory Rate 18 18 Blood Pressure 132/69 132/69 Pulse Oximetry 100 100 Oxygen Delivery Method Room Air Room Air BMI result Body Mass Index 22.0 Const General: cooperative, healthy appearing, comfortable, no acute distress, well developed, alert, awake and Physically active Orientation/consciousness: patient oriented x3 [facility] Head: Yes normal to inspection, Yes No palpable skull fracture present, Yes normocephalic and Yes atraumatic Ears: hearing grossly normal bilaterally, external ears normal, TM's normal bilaterally, TM normal on the right, EAC's normal, mastoids normal and no periauricular adenopathy Throat: Yes posterior oropharynx normal, Yes tonsils normal and Yes uvula midline Eyes General: appearance normal, both eyes and all related structures Neck Neck: Yes normal visual inspection, Yes full ROM, Yes no lymphadenopathy, Yes no meningeal signs, Yes trachea midline, Yes supple, No anterior neck swelling and No tender Chest Chest palpation & inspection: normal inspection of the chest and normal palpation of entire chest wall Resp Effort & Inspection: normal respiratory effort and able to speak in complete sentences Auscultation: clear to auscultation bilaterally Cardio Jugular venous distension: no JVD Heart sounds: S1 normal heart sound present and S2 normal heart sound present GI Inspection: Yes normal to inspection Palpation (GI): Soft to palpation, not firm, nontender, no guarding and not rigid General: No CVA tenderness and Yes no CVA tenderness Back/Spine/Pelvis Back: no CVA tenderness, No CVA tenderness and No back tenderness Skin General skin exam: no rashes or lesions noted, elasticity normal and turgor normal Neuro General: patient oriented x3, gait normal, tone normal, moves all extremities, Normal light touch and pain sensation, no meningeal signs, no focal motor deficits, CN's II-XI intact bilaterally and normal sensation to monofilament Extrem General: Yes normal to inspection, Yes full ROM and Yes capillary refill normal Psych Appearance: grossly normal, well kempt and not disheveled Course Course Course Narrative: This is a Rapid Medical Examination (RME) performed by Linda Castañeda PA-C in triage. Full HPI, ROS, assessment and treatment plan per primary provider in the Main ED. 34 yo female hx of etoh dependence here stating i'm in alcohol withdrawal . admits to relapsing 4 days ago. has been binge drinking vodka, last drink around 0500 this morning. denies elicit substance use. states my heart hurts . assoc cold sweats and headache. not seeking detox. no hx of etoh withdrawal seizures or DT. denies si/hi. denies ah/vh/th. Plan: labs, UA, ekg Medications Administered Discontinued Medications Generic Name Dose Route Start Last Admin Trade Name Freq PRN Reason Stop Dose Admin Chlordiazepoxide HCl 50 mg 05/04/24 21:56 05/04/24 22:25 Chlordiazepoxide Hcl 25 Mg Capsule PO 05/04/24 21:57 50 mg ONCE ONE Administration Magnesium Sulfate 2 gm in 50 mls @ 25 mls/hr 05/04/24 19:25 05/04/24 21:39 Magnesium Sulfate/H2o IV 05/04/24 21:24 Infused ONCE ONE Infusion Ondansetron HCl 4 mg 05/04/24 21:56 05/04/24 22:25 Ondansetron Hcl 4 Mg/2 Ml Vial IVPUSH 05/04/24 21:57 4 mg ONCE ONE Administration Medical Decision Making Medical Decision Making MDM Narrative: 34-year-old female presents to ED for fatigue, not eating and alcohol drinking binge. Patient vital signs are stable. Negative for tachycardia or hyper tension. Negative for tremors. Magnesium 1.4 we will give magnesium and food. Will do troponins and x-rays of chest 10:16pm: two troponins negative. patient given magnesium. Chest xray is normal. Ethanol level is 20. Nurse states patient now having tremors with CIWA score of 8. Vital signs still stable. Patient does not want detox. Will give Librium. Will give Zofran for nausea and Tylenol for headache. Patient will be discharged. EKG negative STEMI. Patient explained worrisome signs and informed to return to the ED immediately. Patient ate food. Patient denies any rectal bleeding, blood in urine, vaginal bleeding, vomittig blood, or abdominal pain. Not suspecting delirium tremors, pancreatitis, pericarditis, myocardial infarction, CHF, PE, pneumothorax, hemothorax, pneumonia, alcohol poisoning, GI bleed or any other life threatening etiologies.. Differential Diagnosis Differential Diagnoses: The differential diagnosis associated with the presentation includes (Alcohol withdrawal, substance abuse, anxiety,) Admission/Observation Consideration of admission/observation: Escalation of care including admission/observation considered Lab Data MDM Lab Attestation statement: I reviewed the patient's lab results. 05/04/24 17:31 05/04/24 17:31 Labs: Lab Results 05/04/24 05/04/24 05/04/24 Range/Units 17:31 19:23 19:28 WBC 5.2 (4.8-10.8) X10*3/uL RBC 4.03 L (4.20-5.50) X10*6/uL Hgb 11.1 L D (12.0-16.0) g/dl Hct 33.8 L D (37.0-47.0) % MCV 83.9 (80.0-98.0) fL MCH 27.5 (27.0-33.0) pg MCHC 32.8 (31.0-35.0) g/dl RDW 15.6 (11.0-16.0) % Plt Count 236 (160-400) X10*3/uL MPV 9.1 L (9.4-12.3) fL Immature Gran % (Auto) 0.2 (0.0-0.4) % Neut % (Auto) 75.2 H (45-73) % Lymph % (Auto) 17.0 L (20-40) % [place] % (Auto) 6.6 (2-11) % Eos % (Auto) 0.6 (0-4) % Baso % (Auto) 0.4 (0-2) % Lymph # (Auto) 0.9 L (1.2-4.9) X10*3/uL [place] # (Auto) 0.3 (0.1-1.2) X10*3/uL Eos # (Auto) 0.0 (0.0-0.4) X10*3/uL Baso # (Auto) 0.0 (0.0-0.2) X10*3/uL Abs Immat Gran (auto) 0.01 (0.00-0.03) X10*3/uL Absolute Neuts (auto) 3.9 (2.0-8.3) x10*3/uL Absolute Nucleated RBC 0.000 (0.0-0.012) X10*3/uL Nucleated RBC % (auto) 0.0 (0.0-0.2) /100WBC Sodium 135 (135-145) mmol/L Potassium 3.4 (3.3-5.1) mmol/L Chloride 103 (96-108) mmol/L Carbon Dioxide 22 (22-29) mmol/L Anion Gap 13 (12-20) BUN 12 (9-16) mg/dL Creatinine 0.77 (0.5-1.4) mg/dL Estim Creat Clear Calc 103.8 Estimated GFR > 60 Random Glucose 133 H (60-115) mg/dL Calcium 9.0 D (8.4-10.2) mg/dL Magnesium 1.4 L* (1.6-2.6) mg/dL Total Bilirubin 1.1 H (0.0-1.0) mg/dL AST 45 H (5-31) U/L ALT 35 H (0-31) U/L Alkaline Phosphatase 53 (39-117) U/L Troponin I High Sens < 2.7 < 2.7 (<3.5-17.0) ng/L Total Protein 6.5 (6.5-8.0) g/dL Albumin 3.9 (3.5-5.0) g/dL Lipase 21 (8-78) U/L Beta HCG, Quant < 2 mIU/mL Urine Color Yellow Urine Appearance Clear Urine pH 6.5 (5.0-9.0) Ur Specific Hernandez 1.015 (1.005-1.025) Urine Protein Negative (Neg-Trace) mg/dL Urine Glucose (UA) Negative (Negative) mg/dL Urine Ketones 15 (Negative) mg/dL Urine Blood Negative (Negative) Urine Nitrite Negative (Negative) Ur Leukocyte Esterase Negative (Negative) Urine Test NEGATIVE (NEGATIVE) Urine Opiates Screen Not Detected (Not Detect) Ur Buprenorphine Scrn Not Detected (Not Detect) ng/mL Ur Oxycodone Screen Not Detected (Not Detect) ng/mL Urine Methadone Screen Not Detected (Not Detect) ng/mL Urine Fentanyl Screen Not Detected (Not Detect) Ur Barbiturates Screen Not Detected (Not Detect) Ur Phencyclidine Scrn Not Detected (Not Detect) Ur Amphetamines Screen Not Detected (Not Detect) U Benzodiazepines Scrn Not Detected (Not Detect) Urine Cocaine Screen Not Detected (Not Detect) U Marijuana (THC) Screen POSITIVE H (Not Detect) Ethyl Alcohol 20 mg/dL Independent Interpretation I performed an independent interpretation of an: EKG (NOrmal Sinus rhytm) and Plain X-Ray Radiology Impression Discussion of test interpretation with radiology: I have reviewed the radiologist's reading. Independent Historian Clinical information obtained from an independent historian. History obtained from or confirmed by: Other (patient) External Record Review External record reviewed: Other (prior visits) Discharge Plan Discharge Clinical Impression: Chest pain, Alcohol abuse Patient Disposition: Home, Self-Care Instructions: Chest Pain (ED), Alcohol Use Disorder (ED) Additional Instructions: Recommend follow-up with the primary care provider and therapist. Return tremors, nausea, vomiting, suicidal/homicidal thoughts, abdominal pain, chest pain, shortness of breath, auditory/visual hallucinations, headache, dizziness, fever, chills, or any other concerning symptoms. Prescriptions: No Action nitrofurantoin monohyd/m-cryst [Macrobid] 100 mg capsule 100 mg PO Q12H 5 Days Qty: 10 0RF Rx Instructions: must administer with a meal/food Stand Alone Forms: Work/School Release Interventions: ED Discharge Assessment Last Done: 05/04/24 22:35 Discharge Date/Time: 05/04/24 22:36 Print Language: Telugu
--- NOTE | 2024-05-04 17:18 | ECG_ITS ---
Test Reason : ETOH WITHDRAW Blood Pressure : / mmHG Vent. Rate : 076 BPM Atrial Rate : 076 BPM P-R Int : 146 ms QRS Dur : 084 ms QT Int : 400 ms P-R-T Axes : 069 019 009 degrees QTc Int : 450 ms Normal sinus rhythm with sinus arrhythmia Possible Left atrial enlargement Nonspecific T wave abnormality Abnormal ECG When compared with ECG of 02-SEP-2023 16:57, No significant change was found Referred By: Sheron Castañeda Electronically Signed By:Galen Varma
[2024-05-04 17:46] LABS: MANUAL DIFF FLAG NO
[2024-05-04 17:52] LABS: Basophils Percent Auto 0.4 % (0-2); Eosinophils Percent Auto 0.6 % (0-4); Hematocrit 33.8 % (37.0-47.0); Hemoglobin 11.1 g/dl (12.0-16.0); Imm Gran Abs Auto 0.01 X10*3/uL (0.00-0.03); Imm Gran Pct Auto 0.2 % (0.0-0.4); Lymphocytes Absolute Auto 0.9 X10*3/uL (1.2-4.9); Mean Corpuscular HGB Conc 32.8 g/dl (31.0-35.0); Mean Corpuscular Hemoglobin 27.5 pg (27.0-33.0); Mean Corpuscular Volume 83.9 fL (80.0-98.0); Mean Platelet Volume 9.1 fL (9.4-12.3); Monocytes Absolute Auto 0.3 X10*3/uL (0.1-1.2); Monocytes Percent Auto 6.6 % (2-11); Neutrophils Absolute Auto 3.9 x10*3/uL (2.0-8.3); Neutrophils Percent Auto 75.2 % (45-73); Platelet Count 236 X10*3/uL (160-400); Red Blood Count 4.03 X10*6/uL (4.20-5.50); Red Cell Distribution Width 15.6 % (11.0-16.0); White Blood Count 5.2 X10*3/uL (4.8-10.8)
[2024-05-04 17:58] VITALS: BP 124/85; PULSE 89; RESP 21; TEMP 36.8; O2SAT 100
--- NOTE | 2024-05-04 18:08 | PC.NURSE ---
Pt comes from home for ETOH withdrawal. States she was recently sober x1 month and relapsed 4 days ago. Last drink 0500 this morning, states she drinks 1 pint of Vodka per day the last 4 days. Pt tremulous/tachycardic upon arrival to room. A/ox4, no increased wob/sob, respirations even and unlabored, s1 and s2 heard, tachycardic on monitoring and evaluation advisor, HR 100s-110s, abdomen soft, non-tender on palpation. Pt states nausea, no episodes of vomiting. 20g IV placed in left AC. Labs and EKG obtained and sent to lab. Call rosario within reach, all needs met at this time.
[2024-05-04 18:12] LABS: Ethanol 20 mg/dL
[2024-05-04 18:20] LABS: Alanine Aminotransferase 35 U/L (0-31); Albumin Level 3.9 g/dL (3.5-5.0); Alkaline Phosphatase 53 U/L (39-117); Anion Gap 13 (12-20); Aspartate Amino Transferase 45 U/L (5-31); Bilirubin Total 1.1 mg/dL (0.0-1.0); Blood Urea Nitrogen 12 mg/dL (9-16); Carbon Dioxide 22 mmol/L (22-29); Chloride 103 mmol/L (96-108); Creatinine Clr Calc Pharmacy 103.8; Estimated Glomerular Filt Rate > 60; Glucose Random 133 mg/dL (60-115); Lipase 21 U/L (8-78); Magnesium 1.4 mg/dL (1.6-2.6); Potassium 3.4 mmol/L (3.3-5.1); Sodium 135 mmol/L (135-145); Total Protein 6.5 g/dL (6.5-8.0)
[2024-05-04 18:29] LABS: Troponin-I High Sensitivity < 2.7 ng/L (<3.5-17.0)
[2024-05-04 19:40] LABS: Appearance Urine Clear; Color Urine Yellow; Glucose Urine UA Negative (Negative); Leukocyte Esterase Urine Negative (Negative); Nitrite Urine Negative (Negative); PH 6.5 (5.0-9.0); Specific Gravity - Urine 1.015 (1.005-1.025); Urine Blood Negative (Negative); Urine Ketones 15 mg/dL (Negative); Urine Protein Negative (Neg-Trace)
[2024-05-04 19:41] LABS: UPreg QC Valid YES; Urine Pregnancy NEGATIVE (NEGATIVE)
[2024-05-04 19:42] LABS: HCG Quantitative < 2 mIU/mL
[2024-05-04] MEDS: Magnesium Sulfate/H2O 2 GM/50 ML PIGGYBACK IV (19:42)
[2024-05-04 19:48] LABS: Amphetamine Screen Urine Not Detected (Not Detect); Barbiturates, Urine Not Detected (Not Detect); Benzodiazepines Screen Urine Not Detected (Not Detect); Buprenorphine Scr Not Detected (Not Detect); Cannabinoid Screen Urine POSITIVE (Not Detect); Cocaine Screen Urine Not Detected (Not Detect); Fentanyl, urine Not Detected (Not Detect); Methadone Screen, Urine Not Detected (Not Detect); Opiate Screen Urine Not Detected (Not Detect); Oxycodone Screen Urine Not Detected (Not Detect); Phencyclidine Screen Urine Not Detected (Not Detect)
[2024-05-04 20:34] LABS: Troponin-I High Sensitivity < 2.7 ng/L (<3.5-17.0)
--- NOTE | 2024-05-04 20:51 | PC.NURSE ---
pt currently sleeping. skin pwd, resp even and non labored. mag infusing as ordered. NSR via tele
[2024-05-04 21:37] VITALS: BP 121/72; PULSE 80; RESP 16; TEMP 36.8; O2SAT 98
--- NOTE | 2024-05-04 21:38 | PC.NURSE ---
Patient awake and alert, skin pwd, resp even and non labored. speaking in full, clear sentences. NSR via tele. reports headache and nausea, tremors noted when arms extended, CIWA 8, provider aware.
[2024-05-04] MEDS: ondansetron HCL 4 MG/2 ML VIAL IVPUSH (22:25)
[2024-05-04] MEDS: chlordiazePOXIDE HCl 25 MG CAPSULE 50 MG PO (22:25)
[2024-05-04 22:26] VITALS: BP 132/69; PULSE 84; RESP 18; O2SAT 100
[2024-05-04 22:35] VITALS: BP 132/69; PULSE 84; RESP 18; TEMP -17.7; TEMP 0; O2SAT 100
== END 2024-05-04 22:36 | disposition home or self-care (01) ==
PROVIDERS: Physician Assistant; Physician Assistant Medical; Emergency Provider Emergency Medicine
DX: F10.239 Alcohol dependence with withdrawal, unspecified (principal); Y90.1 Blood alcohol level of 20-39 mg/100 ml; F12.10 Cannabis abuse, uncomplicated; I49.8 Other specified cardiac arrhythmias; Z51.81 Encounter for therapeutic drug level monitoring; Z79.899 Other long term (current) drug therapy
CPT/HCPCS: 36415; 71045; 80053; 80307; 81003; 81025; 83690; 83735; 84484; 84702; 85025; 93005; 99284; 99285; J2405; J3475

== ENCOUNTER → 2024-05-04 17:18 | Outpatient (BNV) | payer OTHER, SELFPAY | PROVIDERS: Emergency Provider Emergency Medicine; Visit Provider Internal Medicine Cardiovascular Disease | DX: R94.31 Abnormal electrocardiogram [ECG] [EKG] (principal) | CPT/HCPCS: 93010 ==

== ENCOUNTER 2024-06-04 13:19 | Inpatient (IN) | payer OTHER, SELFPAY ==
--- NOTE | 2024-06-04 13:21 | ED.GENADULT ---
HPI - General Adult General Chief complaint: Psychiatric Symptoms Stated complaint: SI Time Seen by Provider: 06/04/24 13:47 Source: patient Mode of arrival: ambulatory Limitations: no limitations History of Present Illness ED Provider: DR. Ross HPI narrative: Patient is a 34-year-old female with history of alcohol use disorder drinks daily last drink was 05:00 this morning, presenting to the ED stating my mental health is getting really bad. States she has been binge drinking for a week straight, last drink was 5am today. Denies history of withdrawal seizures. Reports suicidal thoughts with a plan to d[place] herself [place]. Denies physical complaints. Denies HI. Admits to cannabis use, denies other drug use. Related Data Previous Rx's ?Medication ?Instructions ?Recorded nitrofurantoin 100 mg PO Q12H 5 days #10 caps 09/02/23 monohydrate/macrocrystals 100 mg capsule (Macrobid) Allergies Allergy/AdvReac Type Severity Reaction Status Date / Time lactose Allergy Unknown Gastrointestinal Uncoded 06/04/24 13:24 Upset Seasonal Allergy Unknown Itchy Eyes Uncoded 06/04/24 13:24 SEASONAL ALLERGIES Allergy Unknown RUNNY NOSE Uncoded 06/04/24 13:24 Review of Systems Review of Systems: all other systems are reviewed and are negative Constitutional: Reports as per HPI and Reports no additional constitutional complaints Eyes: Reports as per HPI and Reports no additional eye complaints Reports system reviewed and no additional complaints, except as documented Cardiovascular: Reports as per HPI and Reports no additional cardiovascular complaints Respiratory: Reports as per HPI and Reports no additional respiratory complaints Gastrointestinal: Reports as per HPI and Reports no additional gastrointestinal complaints Genitourinary: Reports no additional female genitourinary complaints Musculoskeletal: Reports no additional musculoskeletal complaints Skin/Breast: Reports system reviewed and no additional complaints, except as docu Psychiatric: Reports no additional psychiatric complaints Endocrine: Reports no additional endocrine complaints Hematologic/Lymphatic: Reports no additional hematologic/lymphatic complaints Allergic/Immunologic: Reports no additional allergic/immunologic complaints Reports system reviewed and no additional complaints, except as documented and Reports Abnormal speech present [facility] Past Medical History Medical History Anxiety Alcohol use disorder Social History Social History Alcohol intake: current Alcohol intake frequency: 3 or more drinks per day Alcohol type: hard liquor Patient Tobacco Use Status: Never used Tobacco Smoked in Last 30 Days: No Use of substances other than those prescribed or required for medical reasons: No Substance Use Type: Marijuana Advance Directives: No Advance Directives Information Provided: Yes Do you have a plan to hurt others: No Plan Patient : No Current occupational status: employed Current occupation: [employer], right hand dominant Physical Exam ED Vital Signs: Vital Signs - 24 hr 06/04/24 13:22 06/04/24 14:09 Temperature 98 F Pulse Rate 99 Respiratory Rate 19 16 Blood Pressure 146/101 H Pulse Oximetry 98 Oxygen Delivery Method Room Air BMI result Body Mass Index 27.4 Vital signs have been reviewed and appear to be correct. Blood pressure elevated. Heart rate normal. Respiratory rate normal. Temperature normal. Oxygen saturation normal. Appearance: Alert. Oriented X3. No acute distress. Head: Normal external exam. Normocephalic. Atraumatic. No Cedillo signs noted. No raccoon eyes noted Eyes: PERRLA. EOMI. Conjunctiva and sclera normal. Eyelids normal. ENT: TM's Normal. Pharynx normal. Uvula midline. Moist mucous membranes. No trismus noted. No drooling noted. No muffled voice noted. Neck: Normal inspection. Neck supple. FROM. No adenopathy. Thyroid Normal. No meningeal signs. No neck mass noted. CVS: Normal heart rate and rhythm. Heart sound normal. No murmurs noted. Pulses normal throughout. Respiratory: No respiratory distress. Painless inspiration. Breath sounds normal. No wheezes/rales/rhonchi noted. Chest nontender. No accessory muscle usage noted or decreased air movement noted. Abdomen: Soft and nontender. Bowel sounds normal in all 4 quadrants. No distention noted. No organomegaly noted. No visible injury noted. Back: No CVA tenderness. Full range of motion noted. Skin: Skin warm and dry. Normal skin color. Normal skin turgor. No rashes/lesions/lacerations noted. Extremities: No lower extremity edema. Extremities exhibit normal range of motion. Extremities nontender. Neuro: Oriented X 3. Cranial nerve exam: II-XII are grossly intact No motor deficit. No sensory deficit. Reflexes normal. Patient Orientation: Person, Place, Time and Situation, okay hygiene and grooming. Fair eye contact, attentive, no tics or tremors. Level of Consciousness: Awake, Appropriate and Alert Patient Behavior: Appropriate, Guarded, Cooperative and Anxious Mood Description: Constricted, Blunted and Apprehensive Affect Description: Constricted, Blunted and Apprehensive Patient Cognition Impaired: No Ability to Follow Directions: Excellent Speech Pattern: Clear, Appropriate and Spontaneous Speech, nonpressured, spontaneous with regular rate and rhythm, normal volume and prosody. No dysarthria. Memory Description: Intact, Immediate Intact and Short Term Intact Hallucinations: None Delusions: Not Present Thought Process: Intact Thought Content: positive for Intact, positive for Logical, Positive for suicidal ideation with plan of getting drunk and drowning in the [place].denies Homicidal Ideation. Depressive Symptoms: Not present. Judgement and Insight: Limited but adequate. Course Course Course Narrative: This is a rapid medical exam performed by Kenny Bardales THERMOFORMING MACHINE OPERATOR: Additional HPI, ROS, PE not included below will be deferred to primary provider. Patient is a 34-year-old female with history of alcohol use disorder presenting to the ED stating my mental health is getting really bad. States she has been binge drinking for a week straight, last drink was 5am today. Denies history of withdrawal seizures. Reports suicidal thoughts with a plan to d[place] herself in the [place]. Denies physical complaints. Denies HI. Admits to cannabis use, denies other drug use. Plan: charge aware, patient to go directly to pod, medical clearance, then CARE team eval Reevaluation(s) Reevaluation #1: Patient is medically cleared, will start the patient on physician observation now, care team evaluation in consultation. Time: 14:50 Reevaluation #2: Patient was seen and evaluated by care team, input is appreciated, patient will be a do will be a dual diagnosis bed search. Time: 19:45 Medications Administered Discontinued Medications Generic Name Dose Route Start Last Admin Trade Name Markq PRN Reason Stop Dose Admin Lorazepam 2 mg 06/04/24 14:32 06/04/24 14:50 Lorazepam 1 Mg Tablet PO 06/04/24 14:33 2 mg ONCE ONE Administration Medical Decision Making Differential Diagnosis Differential Diagnoses: The differential diagnosis associated with the presentation includes ( SI, HI, acute psychosis, substance abuse, alcohol withdrawal, alcohol intoxication, medical clearance.) Admission/Observation Consideration of admission/observation: Escalation of care including admission/observation considered Lab Data MDM Lab Attestation statement: I reviewed the patient's lab results. 06/04/24 14:02 06/04/24 14:02 Labs: Lab Results 06/04/24 06/04/24 Range/Units 13:55 14:02 WBC 7.2 (4.8-10.8) X10*3/uL RBC 4.12 L (4.20-5.50) X10*6/uL Hgb 11.1 L (12.0-16.0) g/dl Hct 34.2 L (37.0-47.0) % MCV 83.0 (80.0-98.0) fL MCH 26.9 L (27.0-33.0) pg MCHC 32.5 (31.0-35.0) g/dl RDW 15.7 (11.0-16.0) % Plt Count 284 (160-400) X10*3/uL MPV 8.6 L (9.4-12.3) fL Immature Gran % (Auto) 0.3 (0.0-0.4) % Neut % (Auto) 70.6 (45-73) % Lymph % (Auto) 17.8 L (20-40) % [place] % (Auto) 8.9 (2-11) % Eos % (Auto) 1.4 (0-4) % Baso % (Auto) 1.0 (0-2) % Lymph # (Auto) 1.3 (1.2-4.9) X10*3/uL [place] # (Auto) 0.6 (0.1-1.2) X10*3/uL Eos # (Auto) 0.1 (0.0-0.4) X10*3/uL Baso # (Auto) 0.1 (0.0-0.2) X10*3/uL Abs Immat Gran (auto) 0.02 (0.00-0.03) X10*3/uL Absolute Neuts (auto) 5.1 (2.0-8.3) x10*3/uL Absolute Nucleated RBC 0.000 (0.0-0.012) X10*3/uL Nucleated RBC % (auto) 0.0 (0.0-0.2) /100WBC Sodium 136 (135-145) mmol/L Potassium 3.9 (3.3-5.1) mmol/L Chloride 102 (96-108) mmol/L Carbon Dioxide 25 (22-29) mmol/L Anion Gap 13 (12-20) BUN 8 L (9-16) mg/dL Creatinine 0.71 (0.5-1.4) mg/dL Estim Creat Clear Calc 125.1 Estimated GFR > 60 Random Glucose 101 (60-115) mg/dL Calcium 8.7 (8.4-10.2) mg/dL Total Bilirubin 1.6 H (0.0-1.0) mg/dL AST 38 H (5-31) U/L ALT 38 H (0-31) U/L Alkaline Phosphatase 55 (39-117) U/L Total Protein 7.1 (6.5-8.0) g/dL Albumin 4.1 (3.5-5.0) g/dL Beta HCG, Quant < 2 mIU/mL Urine Color Yellow Urine Appearance Cloudy Urine pH 6.5 (5.0-9.0) Ur Specific [place] 1.020 (1.005-1.025) Urine Protein 30 (1+) H (Neg-Trace) mg/dL Urine Glucose (UA) Negative (Negative) mg/dL Urine Ketones 15 (Negative) mg/dL Urine Blood Trace (Negative) Urine Nitrite Negative (Negative) Ur Leukocyte Esterase Trace H (Negative) Urine RBC 0-2 (0-2) /HPF Urine WBC 0-5 (0-5) /HPF Ur Squamous Epith Cells 3-5 (0-2) /HPF Urine Bacteria 2+ (None Seen) Hyaline Casts 0-2 (0-2) /LPF Urine Opiates Screen Not Detected (Not Detect) Ur Buprenorphine Scrn Not Detected (Not Detect) ng/mL Ur Oxycodone Screen Not Detected (Not Detect) ng/mL Urine Methadone Screen Not Detected (Not Detect) ng/mL Urine Fentanyl Screen Not Detected (Not Detect) Ur Barbiturates Screen Not Detected (Not Detect) Ur Phencyclidine Scrn Not Detected (Not Detect) Ur Amphetamines Screen Not Detected (Not Detect) U Benzodiazepines Scrn Not Detected (Not Detect) Urine Cocaine Screen Not Detected (Not Detect) U Marijuana (THC) Screen POSITIVE H (Not Detect) Ethyl Alcohol < 10 mg/dL Discharge Plan Discharge Clinical Impression: Suicidal ideation, Depression Patient Disposition: Still a Patient Prescriptions: No Action nitrofurantoin monohyd/m-cryst [Macrobid] 100 mg capsule 100 mg PO Q12H 5 Days Qty: 10 0RF Rx Instructions: must administer with a meal/food Interventions: [place]-Suicide Risk Severity Scale Last Done: 06/04/24 14:09 Print Language: Yakut
[2024-06-04 13:22] VITALS: BP 146/101; PULSE 99; RESP 19; TEMP 36.6; O2SAT 98; BMI 27.4
[2024-06-04 14:08] LABS: Basophils Absolute Auto 0.1 X10*3/uL (0.0-0.2); Eosinophils Absolute Auto 0.1 X10*3/uL (0.0-0.4); Eosinophils Percent Auto 1.4 % (0-4); Hematocrit 34.2 % (37.0-47.0); Hemoglobin 11.1 g/dl (12.0-16.0); Imm Gran Abs Auto 0.02 X10*3/uL (0.00-0.03); Imm Gran Pct Auto 0.3 % (0.0-0.4); Lymphocytes Absolute Auto 1.3 X10*3/uL (1.2-4.9); Lymphocytes Percent Auto 17.8 % (20-40); MANUAL DIFF FLAG NO; Mean Corpuscular HGB Conc 32.5 g/dl (31.0-35.0); Mean Corpuscular Hemoglobin 26.9 pg (27.0-33.0); Mean Platelet Volume 8.6 fL (9.4-12.3); Monocytes Absolute Auto 0.6 X10*3/uL (0.1-1.2); Monocytes Percent Auto 8.9 % (2-11); Neutrophils Absolute Auto 5.1 x10*3/uL (2.0-8.3); Neutrophils Percent Auto 70.6 % (45-73); Platelet Count 284 X10*3/uL (160-400); Red Blood Count 4.12 X10*6/uL (4.20-5.50); Red Cell Distribution Width 15.7 % (11.0-16.0); White Blood Count 7.2 X10*3/uL (4.8-10.8)
[2024-06-04 14:09] VITALS: RESP 16
[2024-06-04 14:12] LABS: Appearance Urine Cloudy; Color Urine Yellow; Glucose Urine UA Negative (Negative); Leukocyte Esterase Urine Trace (Negative); Nitrite Urine Negative (Negative); PH 6.5 (5.0-9.0); UMIC TRIGGER UACC YES; Urine Blood Trace (Negative); Urine Ketones 15 mg/dL (Negative); Urine Protein 30 (1+) mg/dL (Neg-Trace)
[2024-06-04 14:20] LABS: Amphetamine Screen Urine Not Detected (Not Detect); Barbiturates, Urine Not Detected (Not Detect); Benzodiazepines Screen Urine Not Detected (Not Detect); Buprenorphine Scr Not Detected (Not Detect); Cannabinoid Screen Urine POSITIVE (Not Detect); Cocaine Screen Urine Not Detected (Not Detect); Fentanyl, urine Not Detected (Not Detect); Methadone Screen, Urine Not Detected (Not Detect); Opiate Screen Urine Not Detected (Not Detect); Oxycodone Screen Urine Not Detected (Not Detect); Phencyclidine Screen Urine Not Detected (Not Detect)
[2024-06-04 14:23] LABS: Bacteria Urine 2+ (None Seen); Hyaline Casts Urine 0-2 /LPF (0-2); RBC Urine 0-2 /HPF (0-2); WBC Urine 0-5 /HPF (0-5)
[2024-06-04 14:30] LABS: Alanine Aminotransferase 38 U/L (0-31); Albumin Level 4.1 g/dL (3.5-5.0); Alkaline Phosphatase 55 U/L (39-117); Anion Gap 13 (12-20); Aspartate Amino Transferase 38 U/L (5-31); Bilirubin Total 1.6 mg/dL (0.0-1.0); Blood Urea Nitrogen 8 mg/dL (9-16); Calcium 8.7 mg/dL (8.4-10.2); Carbon Dioxide 25 mmol/L (22-29); Chloride 102 mmol/L (96-108); Creatinine Clr Calc Pharmacy 125.1; Estimated Glomerular Filt Rate > 60; Ethanol < 10 mg/dL; Glucose Random 101 mg/dL (60-115); HCG Quantitative < 2 mIU/mL; Potassium 3.9 mmol/L (3.3-5.1); Sodium 136 mmol/L (135-145); Total Protein 7.1 g/dL (6.5-8.0)
[2024-06-04] MEDS: LORazepam 1 MG TABLET 2 MG PO (14:50)
--- NOTE | 2024-06-04 17:52 | PC.NURSE ---
Pt appears to be sleeping, no apparent distress noted. Respirations even and unlabored
[2024-06-04 20:21] VITALS: BP 114/77; PULSE 73; RESP 18; TEMP 36.6; O2SAT 100
--- NOTE | 2024-06-05 | ECG_ITS ---
Test Reason : CHECK QT INTERVAL Blood Pressure : / mmHG Vent. Rate : 065 BPM Atrial Rate : 065 BPM P-R Int : 172 ms QRS Dur : 086 ms QT Int : 412 ms P-R-T Axes : 058 018 005 degrees QTc Int : 428 ms Normal sinus rhythm with sinus arrhythmia Normal ECG When compared with ECG of 04-MAY-2024 17:19, No significant change was found Referred By: Luly Ross Electronically Signed By:KENNETH RICH MD
[2024-06-05 06:36] VITALS: BP 100/57; PULSE 76; RESP 16; TEMP 37.2; O2SAT 99
--- NOTE | 2024-06-05 07:36 | PC.NURSE ---
Assumed care of patient at 0645, patient appears to be in no apparent distress this am, calm and cooperative, called family then went back to bed, now resting in bed. Continue plan of care for dual dx bedsearch
--- NOTE | 2024-06-05 08:33 | PHA.MEDREC ---
Addendum entered by Collin Sinha RPh 06/05/24 08:39: Reviewed by [facility] Original Note: Pharmacy Consult ? Medication Reconciliation Pharmacy has reviewed the medication reconciliation done by nursing.
[2024-06-05 13:59] VITALS: BMI 22.4
[2024-06-05 14:01] VITALS: BP 113/72; PULSE 83; RESP 16; TEMP 37.1; O2SAT 98
[2024-06-05] MEDS: LORazepam 1 MG TABLET 2 MG PO (16:37)
[2024-06-05] MEDS: Ibuprofen 600 MG TABLET PO (16:37)
--- NOTE | 2024-06-05 16:43 | PC.ADMIT ---
This is the 1st admission for this 34 y.o woman to [facility] Referred by [facility] Care Team with Dx of Major Depressive D/O-moderate, Alcohol Dependence with intoxication. Nurse to nurse done with ED Pod prior to admission. Med reconciliation done by ED, no current meds. Admission orders received from Zenaida Burgess. Arrived on unit at 1350 on a [address] 12A, and placed on 15 min safety checks. national coverage specialist/skin check done upon admission with 2 staff present. Precipitating events to admission: self presented to [facility] ED reporting SI with plan to drown self. Reported previous suicide attempts and daily etoh use. Reports drinking 2 pints of vodka daily, last use 06/04/24 at 0500. Reports daily marijuana used, last use 0600 06/04/24. Reports drinking heavily x4-5 years with sobriety x 32 days, month of March and 2 days into April this year. CIWA 15 at 1630, Ativan 2mg po given; provider notified. Reports 32.6 lb wt loss since December of this year due to etoh use/nausea. Recent stressors: eviction/homelessness, separation from 4 children ages 15, 12, 7, 6, breakup from significant other of 16 yrs, etoh use. Rates depression and anxiety #8 on scale 1-10(10 worse). Reports passive, fleeting SI frequently and stated, I am here for help. Reports poor sleep, 3-4 hrs night broken. Reports craving vape, declined NRT. States she has never utilized AA/NA in the past, open to addictions counseling. Cooperative with admission process. Signed CV after meeting with provider, Zenaida Burgess.
[2024-06-05 20:00] VITALS: BP 116/60; PULSE 61; RESP 16; TEMP 36.9; O2SAT 98
[2024-06-05] MEDS: LORazepam 1 MG TABLET PO (20:19)
[2024-06-05] MEDS: traZODone HCL 50 MG TABLET PO (20:22)
[2024-06-05] MEDS: Melatonin 3 MG TABLET PO (20:22)
[2024-06-06 07:30] VITALS: BP 100/59; PULSE 71; RESP 16; TEMP 36.7; O2SAT 98
[2024-06-06] MEDS: Thiamine HCL 100 MG TABLET PO (08:53)
[2024-06-06] MEDS: Nicotine Polacrilex 2 MG GUM 4 MG BUCCAL ×5 (09:16→22:40)
[2024-06-06] MEDS: LORazepam 1 MG TABLET PO ×3 (09:16→16:07)
--- NOTE | 2024-06-06 09:31 | HO.PSYADMNOT ---
HPI Date of Service: 06/06/24 Chief Complaint: crisis Sources of Information: patient interviewed, chart reviewed and crisis/core team assessment reviewed HPI Subjective Notes: Peterson Warning and Conditional Voluntary Narrative: Patient is a 34-year-old female with hx of MDD, PTSD and alcohol use d/o who self presented to [facility] due to suicidal ideation with plan to drown herself secondary to increased life stressors. Per crisis report, patient reports 3 previous suicide attempts via drowning. She reports daily alcohol use. Patient stated, I can not get the thought of killing myself out of my head. I do not know what else to do. I have been drinking half a handle of vodka a day for the past 3-4 years . Patient reports she lost housing in December when she was evicted with her fiance and children; was forced to live in her van. She reports not being able to stay with her family due to her drinking but her children have been staying with them. She reports last trying to drown herself in January while intoxicated in a pond but she stopped herself and returned to her van. Patient reports never being evaluated by crisis. denies HI/VH/AH. Reports poor sleep and poor appetite. Patient reports she was able to stay sober for 32 days back in March and was motivated by being able to see her children. She reports she relapsed due to being stressed. History of attending outpatient therapy at [facility] in and [facility] at [place] earlier this year. Denies history of IPLOC. During admission assessment, patient presents alert and oriented x3. Calm and cooperative. Patient reports feeling anxious and depressed ; pt stated, I came here because I tried to commit suicide over the summer and I did not get help. I started thinking about doing it again so I came here . Patient reports increased depression due to not having housing and not being able to see her children due to her alcoholism. She reports living in her van outside of her place of employment. Patient reports she would like to obtain a field hockey coach and is motivated to remain sober. Patient stated, my family wants me to stay sober for at least 6 months to a year so that I can get my kids back . Utox positive for marijuana. Patient reports she drinks 2 pints a day for the last 4-5 years. She reported she began drinking due to her grandmother passing away and it was a way for her to cope . Patient requesting HIV/STD testing. Tests ordered; awaiting results. Patient reports history of taking Zoloft for years ago but states she did not take it consistently and does not believe it was helpful. She currently does not have an outpatient psychiatric prescriber, nor is she on psychiatric medications at this time. Discussed starting on Prozac; risks/benefits reviewed; patient agreed to trial. Past Psychiatric History: First inpatient psychiatric hospitalization. History of PHP. Therapist through [facility]. Does not have outpatient prescriber. Is currently not on psychiatric medications. History of taking Zoloft however reports she was not consistent with taking it and does not believe it was helpful. hx of SIB via cutting at age 18. hx of SA: Attempted to drown herself in a pond 3 different times over the summer but stopped herself. Medical Evaluation Reviewed: Yes [facility] Medical History (Updated 06/06/24 @ 14:51 by Zenaida Burgess NP) Anxiety Alcohol use disorder Family History: Grandmother: Depression Mother: Depression Social History: Living in [place], single, 4 kids (15,12,8,7) who were staying with family. Works full-time at [employer]. Substance History: Drinks 2 pints of alcohol a day for the last 4-5 years. Smokes marijuana daily. Denies any other substance use. Trauma History: Yes Diagnostics Vital Signs (24Hr): Vital Signs - 24 hr 06/05/24 14:01 06/05/24 20:00 06/06/24 07:30 Temperature 98.8 F 98.5 F 98.1 F Pulse Rate 83 61 71 Respiratory Rate 16 16 16 Blood Pressure 113/72 116/60 100/59 L Pulse Oximetry 98 98 98 Oxygen Delivery Method Room Air Room Air Room Air BMI result Body Mass Index 22.4 Labs 06/04/24 14:02 06/06/24 09:29 Labs: Laboratory Results - last 48 hr 06/04/24 06/04/24 13:55 14:02 WBC 7.2 RBC 4.12 L Hgb 11.1 L Hct 34.2 L MCV 83.0 MCH 26.9 L MCHC 32.5 RDW 15.7 Plt Count 284 MPV 8.6 L Immature Gran % (Auto) 0.3 Neut % (Auto) 70.6 Lymph % (Auto) 17.8 L [place] % (Auto) 8.9 Eos % (Auto) 1.4 Baso % (Auto) 1.0 Lymph # (Auto) 1.3 [place] # (Auto) 0.6 Eos # (Auto) 0.1 Baso # (Auto) 0.1 Abs Immat Gran (auto) 0.02 Absolute Neuts (auto) 5.1 Absolute Nucleated RBC 0.000 Nucleated RBC % (auto) 0.0 Sodium 136 Potassium 3.9 Chloride 102 Carbon Dioxide 25 Anion Gap 13 BUN 8 L Creatinine 0.71 Estim Creat Clear Calc 125.1 Estimated GFR > 60 Random Glucose 101 Calcium 8.7 Total Bilirubin 1.6 H AST 38 H ALT 38 H Alkaline Phosphatase 55 Total Protein 7.1 Albumin 4.1 Beta HCG, Quant < 2 Urine Color Yellow Urine Appearance Cloudy Urine pH 6.5 Ur Specific [place] 1.020 Urine Protein 30 (1+) H Urine Glucose (UA) Negative Urine Ketones 15 Urine Blood Trace Urine Nitrite Negative Ur Leukocyte Esterase Trace H Urine RBC 0-2 Urine WBC 0-5 Ur Squamous Epith Cells 3-5 Urine Bacteria 2+ Hyaline Casts 0-2 Urine Opiates Screen Not Detected Ur Buprenorphine Scrn Not Detected Ur Oxycodone Screen Not Detected Urine Methadone Screen Not Detected Urine Fentanyl Screen Not Detected Ur Barbiturates Screen Not Detected Ur Phencyclidine Scrn Not Detected Ur Amphetamines Screen Not Detected U Benzodiazepines Scrn Not Detected Urine Cocaine Screen Not Detected U Marijuana (THC) Screen POSITIVE H Ethyl Alcohol < 10 Meds/Allergies Meds Home Medications ?Medication ?Instructions ?Recorded ?Confirmed ?Type No Known Home Meds 06/05/24 06/05/24 History Allergies Allergies Allergy/AdvReac Type Severity Reaction Status Date / Time lactose Allergy Unknown Gastrointestinal Uncoded 06/04/24 13:24 Upset Seasonal Allergy Unknown Itchy Eyes Uncoded 06/04/24 13:24 SEASONAL ALLERGIES Allergy Unknown RUNNY NOSE Uncoded 06/04/24 13:24 Mental Status Exam Mental Status Exam Narrative: Pt is alert and oriented; behavior is cooperative, calm; dressed in casual attire; mood is described as depressed ; eye contact appropriate; Speech is normal rate, volume and not pressured; thought process is organized and goal directed; Thought content is on tx; otherwise pertinent to relevant topics and without any delusional content, paranoid ideations or grandiosity; denies HI/AH/VH. Patient reports suicidal ideation with plan to drown self. Assessment & Plan Assessment & Plan (1) MDD (major depressive disorder), recurrent episode, severe: Status: Acute Code(s): F33.2 - Major depressive disorder, recurrent severe without psychotic features (2) PTSD (post-traumatic stress disorder): Status: Acute Code(s): F43.10 - Post-traumatic stress disorder, unspecified (3) Alcohol use disorder: Status: Acute Code(s): F10.90 - Alcohol use, unspecified, uncomplicated (4) Homelessness: Status: Acute Code(s): Z59.00 - Homelessness unspecified Plan Patient is a 34-year-old female with hx of MDD, PTSD and alcohol use d/o who self presented to [facility] due to suicidal ideation with plan to drown herself secondary to increased life stressors. Plan: CV 15 minute safety checks CIWA/Alcohol withdrawal protocol Labs: HIV, RPR, hepatitis panel, CTNG Consult to addiction medicine Start: Prozac 20mg PO daily Referral to outpatient prescriber Encourage groups Discharge planning Patient educated on: diagnosis, medication risk/benefits and substance abuse Reason for continued inpatient stay Substantial Risk for: harm to self and med/psych decompensation Statement Statement: I have reviewed the history and physical and performed a pertinent examination on my patient. No changes have occurred unless specified. If the History and Physical was not performed prior to admission, the Hospitalist's service will be consulted for completing the admission physical. Time Spent With Patient Time: Total time managing care of this patient today _60___ minutes.
[2024-06-06 10:32] LABS: Alanine Aminotransferase 54 U/L (0-31); Albumin Level 3.7 g/dL (3.5-5.0); Alkaline Phosphatase 49 U/L (39-117); Anion Gap 11 (12-20); Aspartate Amino Transferase 70 U/L (5-31); Bilirubin Total 0.7 mg/dL (0.0-1.0); Blood Urea Nitrogen 9 mg/dL (9-16); Calcium 9.3 mg/dL (8.4-10.2); Carbon Dioxide 29 mmol/L (22-29); Chloride 102 mmol/L (96-108); Cholesterol 232 mg/dL (<200); Creatinine Clr Calc Pharmacy 105.1; Estimated Glomerular Filt Rate > 60; Glucose Fasting 102 mg/dL (60-99); HDL Cholesterol 96 mg/dL (>40); LDL Cholesterol Calculated 116 mg/dL (<100); Potassium 3.7 mmol/L (3.3-5.1); Sodium 138 mmol/L (135-145); Total Protein 6.4 g/dL (6.5-8.0); Triglycerides 101 mg/dL (<150)
[2024-06-06] MEDS: Acetaminophen 325 MG TABLET 650 MG PO (12:23)
[2024-06-06] MEDS: FLUoxetine HCl 20 MG CAPSULE PO (15:54)
[2024-06-06 19:52] VITALS: BP 92/50; PULSE 87; RESP 16; TEMP 36.8; O2SAT 97
--- NOTE | 2024-06-06 21:35 | PC.NURSE ---
1999 CIWA not completed as pt was asleep and unable to be woken after multiple attempts. no s/sx of distress noted
[2024-06-06] MEDS: traZODone HCL 50 MG TABLET PO (22:40)
[2024-06-06] MEDS: Melatonin 3 MG TABLET PO (22:40)
[2024-06-07 03:30] LABS: Syphilis Screen Nonreactive (Nonreactive)
[2024-06-07 03:54] LABS: HBS Num1 7.41 mIU/mL (0-7.99); HBsAGNum1 0.35 S/CO (0.00-0.99); HIV AB/AG Nonreactive (Nonreactive); HIV Num 1 0.06 S/CO (0.00-0.99); Hepatitis B Core Antibody Nonreactive (Nonreactive); ~Hepatitis A Antibody IgM Nonreactive (Nonreactive); ~Hepatitis B Surface Antibody NONREACTIVE (Nonreactive); ~Hepatitis C Antibody Nonreactive (Nonreactive)
[2024-06-07 03:55] LABS: Hepatitis B Surface Antigen Negative (Negative)
[2024-06-07 05:21] LABS: CT PCR NOT DETECTED (Not Detect.); NG PCR NOT DETECTED (Not Detect.)
[2024-06-07] MEDS: hydrOXYzine HCL 25 MG TABLET PO (07:20)
[2024-06-07 07:50] VITALS: BP 96/61; PULSE 88; RESP 16; TEMP 36.8; O2SAT 97
[2024-06-07] MEDS: Thiamine HCL 100 MG TABLET PO (09:12)
[2024-06-07] MEDS: FLUoxetine HCl 20 MG CAPSULE PO (09:12)
[2024-06-07] MEDS: Nicotine Polacrilex 2 MG GUM 4 MG BUCCAL ×4 (09:12→20:08)
[2024-06-07] MEDS: diazePAM 5 MG TABLET PO ×2 (15:02→21:09)
--- NOTE | 2024-06-07 19:23 | P.PNPSI_ITS ---
Subjective Subjective Date of Service: 06/07/24 Reason For Visit: crisis Interim History: calm, cooperative. taper procedure reviewed. no other complaints or requests, things going well, 3-day notice up next . per staff, MICHELLE 8, 10, 8 yesterday. slept 8 hours. Mental Status Exam Mental Status Exam Narrative: Pt is alert and oriented; behavior is cooperative, calm; dressed in casual attire; mood is described as OK ; eye contact appropriate; Speech is normal rate, volume and not pressured; thought process is organized and goal directed; Thought content is on tx; otherwise pertinent to relevant topics and without any delusional content, paranoid ideations or grandiosity; no SI/HI/AVH expressed. Diagnostics Vital Signs (24Hr): Vital Signs - 24 hr 06/06/24 19:52 06/07/24 07:50 Temperature 98.2 F 98.2 F Pulse Rate 87 88 Respiratory Rate 16 16 Blood Pressure 92/50 L 96/61 Pulse Oximetry 97 97 Oxygen Delivery Method Room Air Room Air BMI result Body Mass Index 22.4 Labs 06/04/24 14:02 06/06/24 09:29 Labs: Laboratory Results - last 48 hr 06/06/24 06/06/24 06/06/24 09:29 17:00 17:02 Sodium 138 Potassium 3.7 Chloride 102 Carbon Dioxide 29 Anion Gap 11 L BUN 9 Creatinine 0.76 Estim Creat Clear Calc 105.1 Estimated GFR > 60 Fasting Glucose 102 H Calcium 9.3 D Total Bilirubin 0.7 AST 70 H ALT 54 H Alkaline Phosphatase 49 Total Protein 6.4 L Albumin 3.7 Triglycerides 101 Cholesterol 232 H LDL Cholesterol, Calc 116 H HDL Cholesterol 96 T.pallidum Ab (EIA) Nonreactive Chlam trachomat DNA PCR NOT DETECTED Hepatitis A IgM Ab Nonreactive Hep Bs Antigen Negative Hep Bs Antibody NONREACTIVE Hep B Core Total Ab Nonreactive Hepatitis C Ab (EIA) Nonreactive HIV 1&2 Ab/P24 Ag 4thGn Nonreactive N.gonorrhoeae DNA (PCR) NOT DETECTED Medications Medications Current Medications Acetaminophen (Acetaminophen 325 Mg Tablet) 650 mg PO Q6H PRN PRN Reason: Headache/Pain Mild Scale (1-3) Last Admin: 06/06/24 12:23 Dose: 650 mg Al Hydroxide/Mg Hydroxide (Magnesium Hydrox/Alum Hydrox 30 Ml Oral.Susp) 30 ml PO Q6H PRN PRN Reason: Heartburn/Nausea Diazepam (Diazepam 5 Mg Tablet) 5 mg PO BID [facility] Stop: 06/08/24 09:01 Last Admin: 06/07/24 15:02 Dose: 5 mg Diazepam (Diazepam 2 Mg Tablet) 2 mg PO BID [facility] Stop: 06/10/24 09:01 Fluoxetine HCl (Fluoxetine Hcl 20 Mg Capsule) 20 mg PO DAILY [facility] Last Admin: 06/07/24 09:12 Dose: 20 mg Hydroxyzine HCl (Hydroxyzine Hcl 50 Mg Tablet) 50 mg PO Q6H PRN PRN Reason: Anxiety Ibuprofen (Ibuprofen 600 Mg Tablet) 600 mg PO Q6H PRN PRN Reason: Pain, Moderate(Pain Scale 4-6) Last Admin: 06/05/24 16:37 Dose: 600 mg Loperamide HCl (Loperamide Hcl 2 Mg Capsule) 2 mg PO Q6H PRN PRN Reason: Loose Stool Magnesium Hydroxide (Milk Of Magnesia 30 Ml Oral.Susp) 30 ml PO DAILY PRN PRN Reason: Constipation Melatonin (Melatonin 3 Mg Tablet) 3 mg PO BEDTIME PRN PRN Reason: Insomnia Last Admin: 06/06/24 22:40 Dose: 3 mg Nicotine Polacrilex (Nicotine Polacrilex 2 Mg Gum) 4 mg BUCCAL Q2H PRN PRN Reason: Nicotine Cravings Last Admin: 06/07/24 15:04 Dose: 4 mg Ondansetron HCl (Ondansetron Odt 8 Mg Tab.Rapdis) 8 mg TRANSLINGU Q12H PRN PRN Reason: Nausea and Vomiting Thiamine HCl (Thiamine Hcl 100 Mg Tablet) 100 mg PO DAILY [facility] Last Admin: 06/07/24 09:12 Dose: 100 mg Trazodone HCl (Trazodone Hcl 50 Mg Tablet) 50 mg PO BEDTIME MRX1 PRN PRN Reason: Insomnia Last Admin: 06/06/24 22:40 Dose: 50 mg Allergies Allergies Allergy/AdvReac Type Severity Reaction Status Date / Time lactose Allergy Unknown Gastrointestinal Uncoded 06/04/24 13:24 Upset Seasonal Allergy Unknown Itchy Eyes Uncoded 06/04/24 13:24 SEASONAL ALLERGIES Allergy Unknown RUNNY NOSE Uncoded 06/04/24 13:24 Assessment & Plan Assessment & Plan (1) MDD (major depressive disorder), recurrent episode, severe: Status: Acute Code(s): F33.2 - Major depressive disorder, recurrent severe without psychotic features (2) PTSD (post-traumatic stress disorder): Status: Acute Code(s): F43.10 - Post-traumatic stress disorder, unspecified (3) Alcohol use disorder: Status: Acute Code(s): F10.90 - Alcohol use, unspecified, uncomplicated (4) Homelessness: Status: Acute Code(s): Z59.00 - Homelessness unspecified Plan Patient is a 34-year-old female with hx of MDD, PTSD and alcohol use d/o who self presented to [facility] [place] [facility] [place] due to suicidal ideation with plan to drown herself secondary to increased life stressors. Plan: CV 15 minute safety checks CIWA/Alcohol withdrawal protocol Labs: HIV, RPR, hepatitis panel, CTNG Consult to addiction medicine Start: Prozac 20mg PO daily Referral to outpatient prescriber Encourage groups Discharge planning 06/07: CIWA and ativan PRNs DCed. valium taper ordered. otherwise continue current mgmt. Reason for continued inpatient stay Substantial Risk for: harm to self, inability to function and rapid decompensation Time Spent With Patient Time: Total time managing care of this patient today ____ minutes.
[2024-06-07 19:42] VITALS: BP 119/76; PULSE 78; RESP 16; TEMP 36.8; O2SAT 99
[2024-06-07] MEDS: traZODone HCL 50 MG TABLET PO (21:09)
[2024-06-07] MEDS: Melatonin 3 MG TABLET PO (21:09)
[2024-06-08] MEDS: traZODone HCL 50 MG TABLET PO (02:55)
[2024-06-08] MEDS: Nicotine Polacrilex 2 MG GUM 4 MG BUCCAL ×5 (07:22→20:10)
[2024-06-08 08:00] VITALS: BP 127/74; PULSE 98; RESP 14; TEMP 37.1; O2SAT 100
[2024-06-08] MEDS: diazePAM 5 MG TABLET PO (08:13)
[2024-06-08] MEDS: Thiamine HCL 100 MG TABLET PO (08:13)
[2024-06-08] MEDS: FLUoxetine HCl 20 MG CAPSULE PO (08:13)
--- NOTE | 2024-06-08 12:45 | P.PNPSI_ITS ---
Subjective Subjective Date of Service: 06/08/24 Reason For Visit: crisis Interim History: calm, cooperative, pleasant. c/o poor sleep and vivie dreams. agreeable to DC trazodone and see if dreams improve. will try remeron instead. will recheck LFTs closer to discharge. per staff, valium taper ongoing. c/o vivd dreams last night. asking to repeat LFTs. Mental Status Exam Mental Status Exam Narrative: Pt is alert and oriented; behavior is cooperative, calm; dressed in casual attire; mood is described as OK ; eye contact appropriate; Speech is normal rate, volume and not pressured; thought process is organized and goal directed; Thought content is on tx; otherwise pertinent to relevant topics and without any delusional content, paranoid ideations or grandiosity; no SI/HI/AVH expressed. Diagnostics Vital Signs (24Hr): Vital Signs - 24 hr 06/07/24 19:42 06/08/24 08:00 Temperature 98.2 F 98.8 F Pulse Rate 78 98 Respiratory Rate 16 14 Blood Pressure 119/76 127/74 Pulse Oximetry 99 100 Oxygen Delivery Method Room Air Room Air BMI result Body Mass Index 22.4 Labs 06/04/24 14:02 06/06/24 09:29 Labs: Laboratory Results - last 48 hr 06/06/24 06/06/24 17:00 17:02 T.pallidum Ab (EIA) Nonreactive Chlam trachomat DNA PCR NOT DETECTED Hepatitis A IgM Ab Nonreactive Hep Bs Antigen Negative Hep Bs Antibody NONREACTIVE Hep B Core Total Ab Nonreactive Hepatitis C Ab (EIA) Nonreactive HIV 1&2 Ab/P24 Ag 4thGn Nonreactive N.gonorrhoeae DNA (PCR) NOT DETECTED Medications Medications Current Medications Acetaminophen (Acetaminophen 325 Mg Tablet) 650 mg PO Q6H PRN PRN Reason: Headache/Pain Mild Scale (1-3) Last Admin: 06/06/24 12:23 Dose: 650 mg Al Hydroxide/Mg Hydroxide (Magnesium Hydrox/Alum Hydrox 30 Ml Oral.Susp) 30 ml PO Q6H PRN PRN Reason: Heartburn/Nausea Diazepam (Diazepam 2 Mg Tablet) 2 mg PO BID [facility] Stop: 06/10/24 09:01 Fluoxetine HCl (Fluoxetine Hcl 20 Mg Capsule) 20 mg PO DAILY [facility] Last Admin: 06/08/24 08:13 Dose: 20 mg Hydroxyzine HCl (Hydroxyzine Hcl 50 Mg Tablet) 50 mg PO Q6H PRN PRN Reason: Anxiety Ibuprofen (Ibuprofen 600 Mg Tablet) 600 mg PO Q6H PRN PRN Reason: Pain, Moderate(Pain Scale 4-6) Last Admin: 06/05/24 16:37 Dose: 600 mg Loperamide HCl (Loperamide Hcl 2 Mg Capsule) 2 mg PO Q6H PRN PRN Reason: Loose Stool Magnesium Hydroxide (Milk Of Magnesia 30 Ml Oral.Susp) 30 ml PO DAILY PRN PRN Reason: Constipation Melatonin (Melatonin 3 Mg Tablet) 3 mg PO BEDTIME PRN PRN Reason: Insomnia Last Admin: 06/07/24 21:09 Dose: 3 mg Mirtazapine (Mirtazapine 15 Mg Tablet) 15 mg PO BEDTIME [facility] Mirtazapine (Mirtazapine 15 Mg Tablet) 15 mg PO BEDTIME PRN PRN Reason: insomnia Nicotine Polacrilex (Nicotine Polacrilex 2 Mg Gum) 4 mg BUCCAL Q2H PRN PRN Reason: Nicotine Cravings Last Admin: 06/08/24 09:53 Dose: 4 mg Ondansetron HCl (Ondansetron Odt 8 Mg Tab.Rapdis) 8 mg TRANSLINGU Q12H PRN PRN Reason: Nausea and Vomiting Thiamine HCl (Thiamine Hcl 100 Mg Tablet) 100 mg PO DAILY [facility] Last Admin: 06/08/24 08:13 Dose: 100 mg Allergies Allergies Allergy/AdvReac Type Severity Reaction Status Date / Time lactose Allergy Unknown Gastrointestinal Uncoded 06/04/24 13:24 Upset Seasonal Allergy Unknown Itchy Eyes Uncoded 06/04/24 13:24 SEASONAL ALLERGIES Allergy Unknown RUNNY NOSE Uncoded 06/04/24 13:24 Assessment & Plan Assessment & Plan (1) MDD (major depressive disorder), recurrent episode, severe: Status: Acute Code(s): F33.2 - Major depressive disorder, recurrent severe without psychotic features (2) PTSD (post-traumatic stress disorder): Status: Acute Code(s): F43.10 - Post-traumatic stress disorder, unspecified (3) Alcohol use disorder: Status: Acute Code(s): F10.90 - Alcohol use, unspecified, uncomplicated (4) Homelessness: Status: Acute Code(s): Z59.00 - Homelessness unspecified Plan Patient is a 34-year-old female with hx of MDD, PTSD and alcohol use d/o who self [place] [facility] [place] due to [place] ideation with plan to drown herself secondary to increased life stressors. Plan: CV 15 minute safety checks CIWA/Alcohol withdrawal protocol Labs: HIV, RPR, hepatitis panel, CTNG Consult to addiction medicine Start: Prozac 20mg PO daily Referral to outpatient prescriber Encourage groups Discharge planning 06/07: CIWA and ativan PRNs DCed. valium taper ordered. otherwise continue current mgmt. 06/08: vivid dreams. DC trazodone, start remeron trial. recheck LFTs closer to discharge. otherwise continue current mgmt. Reason for continued inpatient stay Substantial Risk for: rapid decompensation Time Spent With Patient Time: Total time managing care of this patient today ____ minutes.
[2024-06-08] MEDS: Acetaminophen 325 MG TABLET 650 MG PO (14:37)
[2024-06-08 19:05] VITALS: BP 108/74; PULSE 85; RESP 16; TEMP 36.9; O2SAT 97
[2024-06-08] MEDS: diazePAM 2 MG TABLET PO (20:30)
[2024-06-08] MEDS: Melatonin 3 MG TABLET PO (22:17)
[2024-06-08] MEDS: Mirtazapine 15 MG TABLET PO ×2 (22:17→22:18)
[2024-06-09] MEDS: Ibuprofen 600 MG TABLET PO ×2 (00:20→22:11)
[2024-06-09] MEDS: hydrOXYzine HCL 50 MG TABLET PO ×3 (00:21→22:11)
[2024-06-09] MEDS: Melatonin 3 MG TABLET PO (00:21)
[2024-06-09 08:00] VITALS: BP 122/81; PULSE 89; RESP 16; TEMP 36.8; O2SAT 99
[2024-06-09] MEDS: Thiamine HCL 100 MG TABLET PO (09:01)
[2024-06-09] MEDS: FLUoxetine HCl 20 MG CAPSULE PO (09:01)
[2024-06-09] MEDS: diazePAM 2 MG TABLET PO ×2 (09:01→20:03)
[2024-06-09] MEDS: Nicotine Polacrilex 2 MG GUM 4 MG BUCCAL ×3 (11:05→20:01)
--- NOTE | 2024-06-09 13:52 | P.PNPSI_ITS ---
Subjective Subjective Date of Service: 06/09/24 Reason For Visit: crisis Subjective Notes: 3 Day Interim History: Active on unit, social with peers. attending groups. Patient reports feeling good ; pt stated, I feel like my mood shifted over the weekend and I'm doing better . Patient reports she plans on staying with her mother for a few days then going to a friends when discharged. Patient reports she plans on focusing on her sobriety. denies SI/HI/VH/AH. 3 day up on 06/11/24. Medication Compliance: Yes Side effects from medications: No Attending Groups: Yes Review of Systems Constitutional: Reports as per HPI Eyes: Reports as per HPI Reports as per HPI Cardiovascular: Reports as per HPI Respiratory: Reports as per HPI Gastrointestinal: Reports as per HPI Genitourinary: Reports as per HPI Musculoskeletal: Reports as per HPI Skin/Breast: Reports as per HPI Reports as per HPI Psychiatric: Reports as per HPI Endocrine: Reports as per HPI Hematologic/Lymphatic: Reports as per HPI Allergic/Immunologic: Reports as per HPI Mental Status Exam Mental Status Exam Narrative: Pt is alert and oriented; behavior is cooperative, friendly; dressed in casual attire; mood is described as better ; eye contact appropriate; Speech is normal rate, volume and not pressured; thought process is organized and goal directed; Thought content is on tx; denies SI/HI/VH/AH. Diagnostics Vital Signs (24Hr): Vital Signs - 24 hr 06/08/24 19:05 06/09/24 08:00 Temperature 98.4 F 98.2 F Pulse Rate 85 89 Respiratory Rate 16 16 Blood Pressure 108/74 122/81 Pulse Oximetry 97 99 Oxygen Delivery Method Room Air Room Air BMI result Body Mass Index 22.4 Labs 06/04/24 14:02 06/06/24 09:29 Medications Medications Current Medications Acetaminophen (Acetaminophen 325 Mg Tablet) 650 mg PO Q6H PRN PRN Reason: Headache/Pain Mild Scale (1-3) Last Admin: 06/08/24 14:37 Dose: 650 mg Al Hydroxide/Mg Hydroxide (Magnesium Hydrox/Alum Hydrox 30 Ml Oral.Susp) 30 ml PO Q6H PRN PRN Reason: Heartburn/Nausea Diazepam (Diazepam 2 Mg Tablet) 2 mg PO BID [facility] Stop: 06/10/24 09:01 Last Admin: 06/09/24 09:01 Dose: 2 mg Fluoxetine HCl (Fluoxetine Hcl 20 Mg Capsule) 20 mg PO DAILY [facility] Last Admin: 06/09/24 09:01 Dose: 20 mg Hydroxyzine HCl (Hydroxyzine Hcl 50 Mg Tablet) 50 mg PO Q6H PRN PRN Reason: Anxiety Last Admin: 06/09/24 11:05 Dose: 50 mg Ibuprofen (Ibuprofen 600 Mg Tablet) 600 mg PO Q6H PRN PRN Reason: Pain, Moderate(Pain Scale 4-6) Last Admin: 06/09/24 00:20 Dose: 600 mg Loperamide HCl (Loperamide Hcl 2 Mg Capsule) 2 mg PO Q6H PRN PRN Reason: Loose Stool Magnesium Hydroxide (Milk Of Magnesia 30 Ml Oral.Susp) 30 ml PO DAILY PRN PRN Reason: Constipation Melatonin (Melatonin 3 Mg Tablet) 6 mg PO BEDTIME PRN PRN Reason: Insomnia Mirtazapine (Mirtazapine 15 Mg Tablet) 15 mg PO BEDTIME [facility] Last Admin: 06/08/24 22:17 Dose: 15 mg Mirtazapine (Mirtazapine 15 Mg Tablet) 15 mg PO BEDTIME PRN PRN Reason: insomnia Last Admin: 06/08/24 22:18 Dose: 15 mg Nicotine Polacrilex (Nicotine Polacrilex 2 Mg Gum) 4 mg BUCCAL Q2H PRN PRN Reason: Nicotine Cravings Last Admin: 06/09/24 11:05 Dose: 4 mg Ondansetron HCl (Ondansetron Odt 8 Mg Tab.Rapdis) 8 mg TRANSLINGU Q12H PRN PRN Reason: Nausea and Vomiting Thiamine HCl (Thiamine Hcl 100 Mg Tablet) 100 mg PO DAILY [facility] Last Admin: 06/09/24 09:01 Dose: 100 mg Allergies Allergies Allergy/AdvReac Type Severity Reaction Status Date / Time lactose Allergy Unknown Gastrointestinal Uncoded 06/04/24 13:24 Upset Seasonal Allergy Unknown Itchy Eyes Uncoded 06/04/24 13:24 SEASONAL ALLERGIES Allergy Unknown RUNNY NOSE Uncoded 06/04/24 13:24 Assessment & Plan Assessment & Plan (1) MDD (major depressive disorder), recurrent episode, severe: Status: Acute Code(s): F33.2 - Major depressive disorder, recurrent severe without psychotic features (2) PTSD (post-traumatic stress disorder): Status: Acute Code(s): F43.10 - Post-traumatic stress disorder, unspecified (3) Alcohol use disorder: Status: Acute Code(s): F10.90 - Alcohol use, unspecified, uncomplicated (4) Homelessness: Status: Acute Code(s): Z59.00 - Homelessness unspecified Plan Patient is a 34-year-old female with hx of MDD, PTSD and alcohol use d/o who self presented to [facility] [place] due to suicidal ideation with plan to drown herself secondary to increased life stressors. Plan: CV 15 minute safety checks CIWA/Alcohol withdrawal protocol Labs: HIV, RPR, hepatitis panel, CTNG Consult to addiction medicine Start: Prozac 20mg PO daily Referral to outpatient prescriber Encourage groups Discharge planning 06/07: CIWA and ativan PRNs DCed. valium taper ordered. otherwise continue current mgmt. 06/08: vivid dreams. DC trazodone, start remeron trial. recheck LFTs closer to discharge. otherwise continue current mgmt. 06/09: Active on unit, social with peers. attending groups. Patient reports feeling good ; pt stated, I feel like my mood shifted over the weekend and I'm doing better . Patient reports she plans on staying with her mother for a few days then going to a friends when discharged. Patient reports she plans on focusing on her sobriety. denies SI/HI/VH/AH. 3 day up on 06/11/24. Patient educated on: diagnosis, medication risk/benefits, substance abuse and therapeutic strategies Reason for continued inpatient stay Substantial Risk for: med/psych decompensation Time Spent With Patient Time: Total time managing care of this patient today _20___ minutes.
[2024-06-09 16:37] LABS: Ammonia 44 umol/L (13-55)
[2024-06-09 16:40] LABS: Alanine Aminotransferase 88 U/L (0-31); Alkaline Phosphatase 49 U/L (39-117); Aspartate Amino Transferase 66 U/L (5-31); Bilirubin Direct 0.1 mg/dL (0.0-0.5); Bilirubin Total 0.4 mg/dL (0.0-1.0)
[2024-06-09 20:00] VITALS: BP 135/89; PULSE 101; RESP 16; TEMP 36.9; O2SAT 100
[2024-06-09] MEDS: Melatonin 3 MG TABLET 6 MG PO (22:11)
[2024-06-09] MEDS: Mirtazapine 15 MG TABLET PO ×2 (22:12)
[2024-06-10 07:47] VITALS: BP 132/91; PULSE 89; RESP 16; TEMP 36.6; O2SAT 100
[2024-06-10] MEDS: Thiamine HCL 100 MG TABLET PO (08:23)
[2024-06-10] MEDS: Nicotine Polacrilex 2 MG GUM 4 MG BUCCAL ×5 (08:23→21:55)
[2024-06-10] MEDS: diazePAM 2 MG TABLET PO (08:23)
[2024-06-10] MEDS: FLUoxetine HCl 20 MG CAPSULE PO (08:23)
--- NOTE | 2024-06-10 10:28 | HO.PSYCHPN ---
Subjective Subjective Date of Service: 06/10/24 Reason For Visit: crisis Subjective Notes: 3 Day Interim History: Active on unit, social with peers. attending groups. Patient reports feeling good ; pt stated, I slept really well last night. I feel like the medications are working well . Pt reports she plans on going to her mothers house after discharge. denies SI/HI/VH/AH. Patient reports she plans on following up with her outpatient providers. Medication Compliance: Yes Side effects from medications: No Attending Groups: Yes Review of Systems Constitutional: Reports as per HPI Eyes: Reports as per HPI Reports as per HPI Cardiovascular: Reports as per HPI Respiratory: Reports as per HPI Gastrointestinal: Reports as per HPI Musculoskeletal: Reports as per HPI Skin/Breast: Reports as per HPI Reports as per HPI Psychiatric: Reports as per HPI Endocrine: Reports as per HPI Hematologic/Lymphatic: Reports as per HPI Allergic/Immunologic: Reports as per HPI Mental Status Exam Mental Status Exam Narrative: Pt is alert and oriented; behavior is cooperative, friendly; dressed in casual attire; mood is described as good ; eye contact appropriate; Speech is normal rate, volume and not pressured; thought process is organized and goal directed; Thought content is on tx; denies SI/HI/VH/AH. Diagnostics Vital Signs (24Hr): Vital Signs - 24 hr 06/09/24 20:00 06/10/24 07:47 Temperature 98.4 F 97.8 F Pulse Rate 101 H 89 Respiratory Rate 16 16 Blood Pressure 135/89 132/91 H Pulse Oximetry 100 100 Oxygen Delivery Method Room Air Room Air BMI result Body Mass Index 22.4 Labs 06/04/24 14:02 06/06/24 09:29 Labs: Laboratory Results - last 48 hr 06/09/24 16:18 Total Bilirubin 0.4 Direct Bilirubin 0.1 AST 66 H ALT 88 H Alkaline Phosphatase 49 Ammonia 44 Total Protein 7.0 Albumin 4.0 Medications Medications Current Medications Acetaminophen (Acetaminophen 325 Mg Tablet) 650 mg PO Q6H PRN PRN Reason: Headache/Pain Mild Scale (1-3) Last Admin: 06/08/24 14:37 Dose: 650 mg Al Hydroxide/Mg Hydroxide (Magnesium Hydrox/Alum Hydrox 30 Ml Oral.Susp) 30 ml PO Q6H PRN PRN Reason: Heartburn/Nausea Fluoxetine HCl (Fluoxetine Hcl 20 Mg Capsule) 20 mg PO DAILY [facility] Last Admin: 06/10/24 08:23 Dose: 20 mg Hydroxyzine HCl (Hydroxyzine Hcl 50 Mg Tablet) 50 mg PO Q6H PRN PRN Reason: Anxiety Last Admin: 06/09/24 22:11 Dose: 50 mg Ibuprofen (Ibuprofen 600 Mg Tablet) 600 mg PO Q6H PRN PRN Reason: Pain, Moderate(Pain Scale 4-6) Last Admin: 06/09/24 22:11 Dose: 600 mg Loperamide HCl (Loperamide Hcl 2 Mg Capsule) 2 mg PO Q6H PRN PRN Reason: Loose Stool Magnesium Hydroxide (Milk Of Magnesia 30 Ml Oral.Susp) 30 ml PO DAILY PRN PRN Reason: Constipation Melatonin (Melatonin 3 Mg Tablet) 6 mg PO BEDTIME PRN PRN Reason: Insomnia Last Admin: 06/09/24 22:11 Dose: 6 mg Mirtazapine (Mirtazapine 15 Mg Tablet) 15 mg PO BEDTIME [facility] Last Admin: 06/09/24 22:12 Dose: 15 mg Mirtazapine (Mirtazapine 15 Mg Tablet) 15 mg PO BEDTIME PRN PRN Reason: insomnia Last Admin: 06/09/24 22:12 Dose: 15 mg Nicotine Polacrilex (Nicotine Polacrilex 2 Mg Gum) 4 mg BUCCAL Q2H PRN PRN Reason: Nicotine Cravings Last Admin: 06/10/24 08:23 Dose: 2 mg Ondansetron HCl (Ondansetron Odt 8 Mg Tab.Rapdis) 8 mg TRANSLINGU Q12H PRN PRN Reason: Nausea and Vomiting Thiamine HCl (Thiamine Hcl 100 Mg Tablet) 100 mg PO DAILY [facility] Last Admin: 06/10/24 08:23 Dose: 100 mg Allergies Allergies Allergy/AdvReac Type Severity Reaction Status Date / Time lactose Allergy Unknown Gastrointestinal Uncoded 06/04/24 13:24 Upset Seasonal Allergy Unknown Itchy Eyes Uncoded 06/04/24 13:24 SEASONAL ALLERGIES Allergy Unknown RUNNY NOSE Uncoded 06/04/24 13:24 Assessment & Plan Assessment & Plan (1) MDD (major depressive disorder), recurrent episode, severe: Status: Acute Code(s): F33.2 - Major depressive disorder, recurrent severe without psychotic features (2) PTSD (post-traumatic stress disorder): Status: Acute Code(s): F43.10 - Post-traumatic stress disorder, unspecified (3) Alcohol use disorder: Status: Acute Code(s): F10.90 - Alcohol use, unspecified, uncomplicated (4) Homelessness: Status: Acute Code(s): Z59.00 - Homelessness unspecified Plan Patient is a 34-year-old female with hx of MDD, PTSD and alcohol use d/o who self presented to [facility] [place] due to suicidal ideation with plan to drown herself secondary to increased life stressors. Plan: CV 15 minute safety checks CIWA/Alcohol withdrawal protocol Labs: HIV, RPR, hepatitis panel, CTNG Consult to addiction medicine Start: Prozac 20mg PO daily Referral to outpatient prescriber Encourage groups Discharge planning 06/07: CIWA and ativan PRNs DCed. valium taper ordered. otherwise continue current mgmt. 06/08: vivid dreams. DC trazodone, start remeron trial. recheck LFTs closer to discharge. otherwise continue current mgmt. 06/09: Active on unit, social with peers. attending groups. Patient reports feeling good ; pt stated, I feel like my mood shifted over the weekend and I'm doing better . Patient reports she plans on staying with her mother for a few days then going to a friends when discharged. Patient reports she plans on focusing on her sobriety. denies SI/HI/VH/AH. 3 day up on 06/11/24. 06/10: Active on unit, social with peers. attending groups. Patient reports feeling good ; pt stated, I slept really well last night. I feel like the medications are working well . Pt reports she plans on going to her mothers house after discharge. denies SI/HI/VH/AH. Patient reports she plans on following up with her outpatient providers. Patient educated on: diagnosis, medication risk/benefits, substance abuse and therapeutic strategies Reason for continued inpatient stay Substantial Risk for: stable for discharge Time Spent With Patient Time: Total time managing care of this patient today _20___ minutes.
[2024-06-10] MEDS: hydrOXYzine HCL 50 MG TABLET PO ×2 (11:35→18:49)
--- NOTE | 2024-06-10 11:36 | MHC.RECOVSUP ---
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 CSS/TSS? Current substance use reported by patient: ETOH Currently not on SHIRA or MOUD Plan:? Provided resources on CSS/TSS Will come back tomorrow morning with intent to commence application for placement in CSS/TSS.
[2024-06-10 19:50] VITALS: BP 130/89; PULSE 106; RESP 16; TEMP 37.3; O2SAT 98
[2024-06-10] MEDS: Ibuprofen 600 MG TABLET PO (21:51)
[2024-06-10] MEDS: Melatonin 3 MG TABLET 6 MG PO (21:51)
[2024-06-10] MEDS: Mirtazapine 15 MG TABLET PO ×2 (21:51)
[2024-06-11] MEDS: Acetaminophen 325 MG TABLET 650 MG PO (03:37)
[2024-06-11] MEDS: hydrOXYzine HCL 50 MG TABLET PO (03:38)
[2024-06-11] MEDS: Nicotine Polacrilex 2 MG GUM 4 MG BUCCAL ×2 (04:40→08:33)
[2024-06-11 07:58] VITALS: BP 138/80; PULSE 76; RESP 16; TEMP 36.7; O2SAT 100
[2024-06-11] MEDS: Thiamine HCL 100 MG TABLET PO (08:32)
[2024-06-11] MEDS: FLUoxetine HCl 20 MG CAPSULE PO (08:32)
--- NOTE | 2024-06-11 09:54 | MHC.RECOVSUP ---
Iron Assorter Note Iron Assorter referral placed to Harley Nuñez at [facility]. Discussed that she should talk with her perinatal social worker Radha Mirza about CSS & TSS referrals. Other: Gave her a list of AA meetings that she might find appropriate/showed her Meeting STEVEN, and told her how to contact [facility] for ride services.
--- NOTE | 2024-06-11 13:20 | PM.PSYDC ---
DS: Providers Provider Date of Service: 06/11/24 Date of admission: 06/05/24 12:40 Date of discharge: 06/11/24 Primary care physician: Unknown Physician Admitting clinician: Zenaida Burgess Attending physician on admission: Juanpablo Millan Consults: 06/05/24 14:32 Addiction Medicine Routine Consulting Provider: Addiction Covering Reason for consultation: Drinks 2 pints vodka daily Has provider been notified: Yes Attending physician on discharge: Carlos Drake Discharging clinician: Zenaida Burgess DS: Diagnosis Discharge Diagnosis (1) MDD (major depressive disorder), recurrent episode, severe: Status: Acute (2) PTSD (post-traumatic stress disorder): Status: Acute (3) Alcohol use disorder: Status: Acute (4) Homelessness: Status: Acute DS: Medications Discharge Medications Home Medications: Previous Rx's ?Medication ?Instructions ?Recorded fluoxetine 20 mg capsule 20 mg PO DAILY 30 days #30 caps 06/10/24 hydroxyzine HCl 50 mg tablet 50 mg PO TID PRN Anxiety 30 days 06/10/24 #90 tabs melatonin 5 mg tablet 5 mg PO BEDTIME PRN sleep 30 days 06/10/24 #30 tabs mirtazapine 15 mg tablet 15 mg PO BEDTIME 30 days #30 tabs 06/10/24 Mental Status Exam Mental Status Exam Narrative: Pt is alert and oriented; behavior is cooperative, friendly; dressed in casual attire; mood is described as good ; eye contact appropriate; Speech is normal rate, volume and not pressured; thought process is organized and goal directed; Thought content is on tx; denies SI/HI/VH/AH. Data Data Completed and Pending Completed studies during hospitalization [Text1]: 06/04/24 06/04/24 06/06/24 13:55 14:02 09:29 WBC 7.2 RBC 4.12 L Hgb 11.1 L Hct 34.2 L MCV 83.0 MCH 26.9 L MCHC 32.5 RDW 15.7 Plt Count 284 MPV 8.6 L Immature Gran % (Auto) 0.3 Neut % (Auto) 70.6 Lymph % (Auto) 17.8 L Willacy % (Auto) 8.9 Eos % (Auto) 1.4 Baso % (Auto) 1.0 Lymph # (Auto) 1.3 Willacy # (Auto) 0.6 Eos # (Auto) 0.1 Baso # (Auto) 0.1 Abs Immat Gran (auto) 0.02 Absolute Neuts (auto) 5.1 Absolute Nucleated RBC 0.000 Nucleated RBC % (auto) 0.0 Sodium 136 138 Potassium 3.9 3.7 Chloride 102 102 Carbon Dioxide 25 29 Anion Gap 13 11 L BUN 8 L 9 Creatinine 0.71 0.76 Estim Creat Clear Calc 125.1 105.1 Estimated GFR > 60 > 60 Random Glucose 101 Fasting Glucose 102 H Calcium 8.7 9.3 D Total Bilirubin 1.6 H 0.7 Direct Bilirubin AST 38 H 70 H ALT 38 H 54 H Alkaline Phosphatase 55 49 Ammonia Total Protein 7.1 6.4 L Albumin 4.1 3.7 Triglycerides 101 Cholesterol 232 H LDL Cholesterol, Calc 116 H HDL Cholesterol 96 Beta HCG, Quant < 2 Urine Color Yellow Urine Appearance Cloudy Urine pH 6.5 Ur Specific Jackson 1.020 Urine Protein 30 (1+) H Urine Glucose (UA) Negative Urine Ketones 15 Urine Blood Trace Urine Nitrite Negative Ur Leukocyte Esterase Trace H Urine RBC 0-2 Urine WBC 0-5 Ur Squamous Epith Cells 3-5 Urine Bacteria 2+ Hyaline Casts 0-2 Urine Opiates Screen Not Detected Ur Buprenorphine Scrn Not Detected Ur Oxycodone Screen Not Detected Urine Methadone Screen Not Detected Urine Fentanyl Screen Not Detected Ur Barbiturates Screen Not Detected Ur Phencyclidine Scrn Not Detected Ur Amphetamines Screen Not Detected U Benzodiazepines Scrn Not Detected Urine Cocaine Screen Not Detected U Marijuana (THC) Screen POSITIVE H Ethyl Alcohol < 10 T.pallidum Ab (EIA) Chlam trachomat DNA PCR Hepatitis A IgM Ab Hep Bs Antigen Hep Bs Antibody Hep B Core Total Ab Hepatitis C Ab (EIA) HIV 1&2 Ab/P24 Ag 4thGn N.gonorrhoeae DNA (PCR) 06/06/24 06/06/24 06/09/24 17:00 17:02 16:18 WBC RBC Hgb Hct MCV MCH MCHC RDW Plt Count MPV Immature Gran % (Auto) Neut % (Auto) Lymph % (Auto) Willacy % (Auto) Eos % (Auto) Baso % (Auto) Lymph # (Auto) Willacy # (Auto) Eos # (Auto) Baso # (Auto) Abs Immat Gran (auto) Absolute Neuts (auto) Absolute Nucleated RBC Nucleated RBC % (auto) Sodium Potassium Chloride Carbon Dioxide Anion Gap BUN Creatinine Estim Creat Clear Calc Estimated GFR Random Glucose Fasting Glucose Calcium Total Bilirubin 0.4 Direct Bilirubin 0.1 AST 66 H ALT 88 H Alkaline Phosphatase 49 Ammonia 44 Total Protein 7.0 Albumin 4.0 Triglycerides Cholesterol LDL Cholesterol, Calc HDL Cholesterol Beta HCG, Quant Urine Color Urine Appearance Urine pH Ur Specific Jackson Urine Protein Urine Glucose (UA) Urine Ketones Urine Blood Urine Nitrite Ur Leukocyte Esterase Urine RBC Urine WBC Ur Squamous Epith Cells Urine Bacteria Hyaline Casts Urine Opiates Screen Ur Buprenorphine Scrn Ur Oxycodone Screen Urine Methadone Screen Urine Fentanyl Screen Ur Barbiturates Screen Ur Phencyclidine Scrn Ur Amphetamines Screen U Benzodiazepines Scrn Urine Cocaine Screen U Marijuana (THC) Screen Ethyl Alcohol T.pallidum Ab (EIA) Nonreactive Chlam trachomat DNA PCR NOT DETECTED Hepatitis A IgM Ab Nonreactive Hep Bs Antigen Negative Hep Bs Antibody NONREACTIVE Hep B Core Total Ab Nonreactive Hepatitis C Ab (EIA) Nonreactive HIV 1&2 Ab/P24 Ag 4thGn Nonreactive N.gonorrhoeae DNA (PCR) NOT DETECTED DS: Summary Hospital Course Hospital Course: Patient is a 34-year-old female with hx of MDD, PTSD and alcohol use d/o who self presented to [facility] due to suicidal ideation with plan to drown herself secondary to increased life stressors. Per crisis report, patient reports 3 previous suicide attempts via drowning. She reports daily alcohol use. Patient stated, I can not get the thought of killing myself out of my head. I do not know what else to do. I have been drinking half a handle of vodka a day for the past 3-4 years . Patient reports she lost housing in December when she was evicted with her fiance and children; was forced to live in her van. She reports not being able to stay with her family due to her drinking but her children have been staying with them. She reports last trying to drown herself in January while intoxicated in a pond but she stopped herself and returned to her van. Patient reports never being evaluated by crisis. denies HI/VH/AH. Reports poor sleep and poor appetite. Patient reports she was able to stay sober for 32 days back in March and was motivated by being able to see her children. She reports she relapsed due to being stressed. History of attending outpatient therapy at [facility] in and [facility] at [place] earlier this year. Denies history of IPLOC. During admission assessment, patient presents alert and oriented x3. Calm and cooperative. Patient reports feeling anxious and depressed ; pt stated, I came here because I tried to commit suicide over the summer and I did not get help. I started thinking about doing it again so I came here . Patient reports increased depression due to not having housing and not being able to see her children due to her alcoholism. She reports living in her van outside of her place of employment. 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 Patient stated, my family wants me to stay sober for at least 6 months to a year so that I can get my kids back . Utox positive for marijuana. Patient reports she drinks 2 pints a day for the last 4-5 years. She reported she began drinking due to her grandmother passing away and it was a way for her to cope . Patient requesting HIV/STD testing. Tests ordered; awaiting results. Patient reports history of taking Zoloft for years ago but states she did not take it consistently and does not believe it was helpful. She currently does not have an outpatient psychiatric prescriber, nor is she on psychiatric medications at this time. Discussed starting on Prozac; risks/benefits reviewed; patient agreed to trial. Plan: CV 15 minute safety checks CIWA/Alcohol withdrawal protocol Labs: HIV, RPR, hepatitis panel, CTNG Consult to addiction medicine Start: Prozac 20mg PO daily Referral to outpatient prescriber Encourage groups Discharge planning CIWA and ativan PRNs DCed. valium taper ordered. otherwise continue current mgmt. vivid dreams. DC trazodone, start remeron trial. recheck LFTs closer to discharge. otherwise continue current mgmt. Active on unit, social with peers. attending groups. Patient reports feeling good ; pt stated, I feel like my mood shifted over the weekend and I'm doing better . Patient reports she plans on staying with her mother for a few days then going to a friends when discharged. Patient reports she plans on focusing on her sobriety. denies SI/HI/VH/AH. 3 day up on 06/11/24. Active on unit, social with peers. attending groups. Patient reports feeling good ; pt stated, I slept really well last night. I feel like the medications are working well . Pt reports she plans on going to her mothers house after discharge. denies SI/HI/VH/AH. Patient reports she plans on following up with her outpatient providers. Time spent discussing smoking cessation with patient: 3 to 10 minutes Status at Discharge Cognitive/behavioral status at discharge: Patient was interviewed prior to discharge and found to be fully oriented and without SI or HI. Patient has insight and demonstrates good judgment in terms of wanting to pursue treatment. Patient has a safety plan that includes presenting to the closest ER or calling 911 if feeling unsafe. Functional status at discharge: independent ambulation Overall status at discharge: patient is back to baseline Time Spent with Patient Time attestation: Total time managing care of this patient today _20___ minutes. Time spent: Less than 30 minutes Discharge Plan Discharge Anticipated Discharge Date/Time: 06/11/24 11:00 Patient Disposition: Home, Self-Care Discharge Diagnosis: MDD, PTSD, Alcohol use d/o Referrals: Tiana Chi (Therapy) [Other] - 06/16/24 11:00 am (IN OFFICE APPOINTMENT -Please arrive 15 minutes early to your appointment in order to fill out necessary paperwork. ) Alyssa Willis (Psychiatry) [Other] - 07/07/24 10:00 am (TELEHEALTH APPOINTMENT -Psychiatric Evaluation ) Alyssa Willis (Psychiatry) [Other] - 08/11/24 10:00 am (TELEHEALTH APPOINTMENT -Medication Management ) [facility] Brittney Fernando [Provider Group] - 06/23/24 10:30 am (PCP is Dr. Brown. Awaiting call back with date and time of scheduled follow up appt. 06-11-24 your follow up appt was scheduled with Dr. Brown on 06-23-24 @ 10:30am) Discharge Medications: New melatonin 5 mg tablet 5 mg PO BEDTIME PRN (Reason: sleep) 30 Days Qty: 30 0RF mirtazapine 15 mg Tablet 15 mg PO BEDTIME 30 Days Qty: 30 0RF fluoxetine 20 mg Capsule 20 mg PO DAILY 30 Days Qty: 30 0RF hydroxyzine HCl 50 mg Tablet 50 mg PO TID PRN (Reason: Anxiety) 30 Days Qty: 90 0RF Discharge Orders: Discharge Order (Routine); Ordered 06/11/24 Ordered By: Zenaida Burgess Diet: Regular diet Activity on Discharge: As tolerated Stand Alone Forms: Patient Portal Discharge page, Community Support Print Language: Maltese Care Plan Goals: Maintain mood and safe behaviors Take medications as prescribed Continue to pursue sobriety Practice coping skills Continue with outpatient providers and reach out to them as needed Health Concerns: Mood stability and behaviors Sobriety Plan of Treatment: Follow up with your PCP, psychiatric provider and other outpatient providers regarding above concerns Take medications as prescribed Assessment: Patient was interviewed prior to discharge and found to be fully oriented and without SI or HI. Patient has insight and demonstrates good judgment in terms of wanting to pursue treatment. Patient has a safety plan that includes presenting to the closest ER or calling 911 if feeling unsafe. Discharge Date/Time: 06/11/24 10:52
== END 2024-06-11 10:52 | disposition home or self-care (01) | DRG 751 ==
LOC: HO.ED 14:00 → HO.PADLT16 06-05 12:41
PROVIDERS: Registered Nurse Emergency; Admitting Provider Registered Nurse; Emergency Provider Emergency Medicine; Responsible Provider Registered Nurse; Visit Provider Psychiatry & Neurology Psychiatry
DX: F33.2 Major depressive disorder, recurrent severe without psychotic features (principal); R45.851 Suicidal ideations; F17.290 Nicotine dependence, other tobacco product, uncomplicated; Z59.02 Unsheltered homelessness; F43.10 Post-traumatic stress disorder, unspecified; Z71.6 Tobacco abuse counseling; Z91.51 Personal history of suicidal behavior; Z79.899 Other long term (current) drug therapy
CPT/HCPCS: 36415; 80053; 80061; 80076; 80307; 81001; 82140; 84702; 85025; 86704; 86706; 86709; 86780; 86803; 87340; 87389; 87491; 87591; 93005; 99285; S9485

== ENCOUNTER → 2024-06-05 12:24 | Outpatient (BNV) | payer OTHER, SELFPAY | PROVIDERS: Admitting Provider Registered Nurse; Emergency Provider Emergency Medicine; Responsible Provider Registered Nurse; Visit Provider Internal Medicine Cardiovascular Disease | DX: R45.851 Suicidal ideations (principal) | CPT/HCPCS: 93010 ==

== ENCOUNTER → 2024-06-05 12:40 | Outpatient (BNV) | payer OTHER, SELFPAY | PROVIDERS: Admitting Provider Registered Nurse; Emergency Provider Emergency Medicine; Responsible Provider Registered Nurse; Visit Provider Registered Nurse | DX: F33.2 Major depressive disorder, recurrent severe without psychotic features (principal); F43.10 Post-traumatic stress disorder, unspecified; F10.90 Alcohol use, unspecified, uncomplicated; Z59.00 Homelessness unspecified | CPT/HCPCS: 90792; 99231; 99232; 99238 ==